=== PATIENT | female | born 1995 | race African-American/Black ===

== ENCOUNTER 2017-03-13 09:09 | Emergency (ER) | payer MEDICAID ==
[~2017-03-13] VITALS: Ht 157.5 cm; Wt 70.3 kg
[~2017-03-13 09:09] MED LIST: ACHD5005 PO; CEPH-507 PO; CLTR1PV45 VG; DCS100C PO; DOCU100C37 PO; HYDR-3812 PO; IBP600T1 PO; IBUP-1773 PO; METR500T PO; PREN1TAB71 PO; VALA500T17 PO
[2017-03-13] MEDS ORDERED: TETANUS,DIPTH,PERTUSS P/F (BOOSTRIX) 0.5 ML VIAL IM ONE (09:30)
[2017-03-13] MEDS ORDERED: IBUPROFEN 600 MG (MOTRIN) TAB PO ONE (09:30)
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
[2017-03-13 10:59] VITALS: BP 134/86
== END 2017-03-13 10:59 | disposition home or self-care (01) ==
LOC: EDUNIT# 09:09 → ER 09:13
DX: S01.01XA Laceration without foreign body of scalp, initial encounter (principal); Z23 Encounter for immunization; J45.909 Unspecified asthma, uncomplicated; X99.9XXA Assault by unspecified sharp object, initial encounter; Y92.009 Unspecified place in unspecified non-institutional (private) residence as the place of occurrence of the external cause; Y99.8 Other external cause status
CPT/HCPCS: 70450; 90715

== ENCOUNTER 2017-03-20 04:10 | Emergency (ER) | payer MEDICAID ==
[~2017-03-20] VITALS: Ht 157.5 cm; Wt 70.5 kg
--- OUTSIDE RECORDS SUMMARY | 2017-03-20 04:19 | XMS REPORT ---
Author Author BLESSING LMOELI Organization [facility] Address [address] [place] [address] Care Team Providers Care Presser And Blocker Knitted Goods Name Role Phone BLESSING LOMELI Unavailable PROBLEMS Type Condition ICD9-CM Code [id number] Code Onset Dates Condition Status SNOMED Code Problem Previous section Z98.89 Active 103815880 Problem Migraine with aura and without status migrainosus, not intractable G43.109 Active 0400753 ALLERGIES Substance Reaction Event Type Date Status Sulfamethoxazole-Trimethoprim Unknown Drug Allergy May, Active SOCIAL HISTORY No smoking Hx information available PLAN OF CARE Activity Details Follow Up After IUD available Reason: VITAL SIGNS Height 62 in 2016-05-23 Weight 162 lbs 2016-05-23 Temperature 98.1 degrees Fahrenheit 2016-05-23 Heart Rate 80 bpm 2016-05-23 Respiratory Rate 20 2016-05-23 BMI 29.63 kg/m2 2016-05-23 Blood pressure systolic 108 mmHg 2016-05-23 Blood pressure diastolic 72 mmHg 2016-05-23 MEDICATIONS Medication Instructions Dosage Frequency Start Date End Date Duration Status Ortho Micronor 0.35 MG Orally Once a day 1 tablet 24h May, 30 day(s) Active RESULTS Name Result Date Reference Range TEST, URINE (IN HOUSE) 2016-05-23 RESULTS negative Lot # [id number] Control + Exp date 09/03 PROCEDURES Procedure Date Ordered Related Diagnosis Body Site Office Visit, Est Pt., Level 3 May 23, 2016 URINE TEST May 23, 2016 IMMUNIZATIONS No Known Immunizations
--- OUTSIDE RECORDS SUMMARY | 2017-03-20 04:21 | XMS REPORT ---
Demographics Address [address] [place] [address] Preferred Language Botswanan Marital Status Never Sikh Affiliation Unknown Race Black or Ethnic Group Not or Author Author Dyan Goodman [facility] Address [address] [place], [place] [phone] Care Team Providers Care Athletic Equipment Manager Name Role Phone Dyan Goodman PCP Unavailable Allergies and Adverse Reactions Name Reaction Notes NO KNOWN DRUG ALLERGIES Plan of Treatment Planned Activity Comments Planned Date Planned Time Plan/Goal ALPHA-FETOPROTEIN SERUM 02/21/2015 12:00 AM CHORIONIC GONADOTROPIN TEST 02/21/2015 12:00 AM CHORIONIC GONADOTROPIN ASSAY 02/21/2015 12:00 AM OB US >/=14 WKS SNGL FETUS 03/14/2015 12:00 AM Medications Name Start Date Expiration Date SIG Comments Diflucan 150 mg oral tablet 01/12/2015 01/13/2015 take 1 tablet (150 mg) by oral route once for 1 day Problem List Not available. Vital Signs Date Time BP-Sys(mm[Hg] BP-Zahraa(mm[Hg]) HR(bpm) RR(rpm) Temp WT HT HC BMI BSA BMI Percentile O2 Sat(%) 01/09/2015 11:19:00 AM 135 mmHg 75 mmHg 112 bpm 20 rpm 99.5 F 153 lbs 63 in 27.10 kg/m2 1.76 m2 Social History Name Description Comments Tobacco Never smoker History of Procedures Date Ordered Description Order Status 01/09/2015 11:27 AM URINE TEST Reviewed 01/09/2015 12:00 AM CYTOPATH C/V THIN LAYER Returned 01/09/2015 12:00 AM SPECIMEN HANDLING OFFICE-LAB Reviewed 01/09/2015 12:00 AM N.GONORRHOEAE DNA AMP PROB Returned 01/09/2015 12:00 AM CHLAMYDIA CULTURE Returned 01/09/2015 12:00 AM HIV-1ANTIBODY Returned 01/09/2015 12:00 AM URINALYSIS AUTO W/SCOPE Returned 01/09/2015 12:00 AM OBSTETRIC PANEL Returned 01/09/2015 12:00 AM HEMOGLOBIN ELECTROPHORESIS Returned Results Summary Data and Description Results 01/09/2015 11:27 AM Test, Urine Positive 01/09/2015 12:18 PM RPR Non Reactive COLOR YELLOW APPEARANCE CLEAR SPEC GRAV 1.025 pH 6.0 PROTEIN NEGATIVE GLUCOSE NEGATIVE mg/dLKETONE NEGATIVE BILIRUBIN NEGATIVE BLOOD NEGATIVE NITRITE NEGATIVE LEUK SCREEN NEGATIVE CASTS/LPF NEGATIVE /LPFCRYSTALS NEGATIVE MUCOUS THRDS NEGATIVE BACTERIA FEW EPITH CELLS FEW SQUAMOUS /HPFTRICHOMONAS NEGATIVE YEAST NEGATIVE WBC 8.7 RBC 4.79 HGB 14.0 g /dLHCT 40.70 %MCV 85.0 fLMCH 29.20 pgMCHC 34.40 g/dLRDW CV 13.60 %MPV 10.0 fLPLT 285 %NEUT 47.20 %%LYMP 44.90 %%MONO 6.70 %%EOS 0.70 %%BASO 0.50 %#NEUT 4.10 #LYMP 3.89 #MONO 0.58 #EOS 0.06 #BASO 0.04 HBsAg Screen Negative HIV AG/AB COMBO 0.11 Rubella Antibodies, IgG 2.29 Index History Of Immunizations Not available. History of Past Illness Name Date of Onset Comments *No known medical problems test confirmed positive Jan 09 2015 11:27AM Encounter for supervision of normal in second trimester, unspecified Feb 21 2015 2:42PM Payers Insurance Name Company Name Plan Name Plan Number Policy Number Policy Group Number Start Date [facility] - [facility] Plan [facility] Comm [id number] N/A History of Encounters Visit Date Visit Type Provider 02/21/[address] Dyan Goodman MD 01/17/[address] TRINIDAD WOLF MD 01/09/2015 Office visit Donna Bacon APRN
--- OUTSIDE RECORDS SUMMARY | 2017-03-20 04:21 | XMS REPORT ---
Demographics Address [address] [place] [address] Preferred Language Sao Tomean Marital Status Never Taoism Affiliation Unknown Race Black or Ethnic Group Not or Author Author Dyan Goodman [facility] Address [address] [place], [place] [phone] Care Team Providers Care Buffer Nickel Name Role Phone Dyan Goodman PCP Unavailable Allergies and Adverse Reactions Name Reaction Notes NO KNOWN DRUG ALLERGIES Plan of Treatment Not available. Medications Name Start Date Expiration Date SIG [...] of Procedures Date Ordered Description Order Status 02/21/2015 12:00 AM ALPHA-FETOPROTEIN SERUM Returned 02/21/2015 12:00 AM CHORIONIC GONADOTROPIN TEST Returned 02/21/2015 12:00 AM CHORIONIC GONADOTROPIN ASSAY Returned 03/14/2015 12:00 AM OB US >/=14 WKS SNGL FETUS Returned 01/09/2015 11:27 AM URINE TEST Reviewed 01/09/2015 [...] COMBO 0.11 Rubella Antibodies, IgG 2.29 Index 02/21/2015 3:12 PM AFP Value 0.0552 ug/mLAFP MoM 1.26 hCG Value 55823.0 mIU/ mLhCG MoM 0.98 uE3 Value 1.020 ng/mLuE3 MoM 0.81 ZAHRAA Value 131.220 pg/mLDIA MoM 0.76 OSBR [place] 1 [place] [address] DSR (Second Trimester) 1IN 8668 DSR (By Age) 1 IN 1124 T18 Risk Not increased T18 (By Age) 1:4377 History Of Immunizations Not available. History of Past Illness Name Date of Onset Comments *No known medical problems test confirmed positive Jan 09 2015 11:27AM Encounter for supervision of normal in second trimester, unspecified Feb 21 2015 2:42PM Payers Insurance Name Company Name Plan Name Plan Number Policy Number Policy Group Number Start Date [facility] - [facility] - Community Plan [facility] Comm [id number] N/A History of Encounters Visit Date Visit Type Provider 05/03/[address] Dyan Goodman MD 04/24/[address] Dyan Goodman MD 03/27/[address] Dyan Goodman MD 02/21/[address] Dyan Goodman MD 01/17/[address] TRINIDAD WOLF MD 01/09/2015 Office visit Donna Bacon APRN
--- OUTSIDE RECORDS SUMMARY | 2017-03-20 04:21 | XMS REPORT ---
Author Author BLESSING LOMELI [facility] eClinicalWorks Address Unknown Phone Unavailable Care Team Providers Care Retinal Angiographer Name Role Phone BLESSING LOMELI Unavailable Allergies No Known Allergies Problems Problem Type Condition Code Onset Dates Condition Status Problem Late care, third trimester O09.33 Active Problem Supervision of normal , third trimester Z34.93 Active Problem Previous section Z98.89 Active Assessment Proteinuria affecting O12.10 Active Assessment 36 weeks gestation of Z3A.36 Active Assessment Supervision of normal , third trimester Z34.93 Active Assessment Encounter for immunization Z23 Active Medications No Known Medications Procedures Procedure Coding System Code Date DETECT AGNT MULT, DNA, AMPLI CPT-4 29848 Jun 29, 2015 Office Visit, Est Pt., Level 2 CPT-4 88298 Jun 29, 2015 URINE-NO MICRO CPT-4 83432 Jun 29, 2015 SINGLE IMMUNIZATION ADMIN CPT-4 95498 Jun 29, 2015 TDAP (BOOSTRIX) CPT-4 41620 Jun 29, 2015 Vital Signs Date/Time: Jun 29, 2015 Temperature 98.0 F Weight 179.9 lbs Height 62 in BMI 32.904 Index Blood Pressure Diastolic 88 mmHg Blood Pressure Systolic 130 mmHg Results Name Result Date Reference Range Unit Abnormality Flag UA OB DIP (IN HOUSE) ----Glucose neg [id number] ----Protein 1+ 20150629 Immunizations Vaccine Administration Date TDAP (BOOSTRIX) Jun 29, 2015 Summary Purpose eClinicalWorks Submission
--- OUTSIDE RECORDS SUMMARY | 2017-03-20 04:22 | XMS REPORT ---
Demographics Address [address] [place] [address] Preferred Language Russian Marital Status Never Amish Affiliation Unknown Race Black or Ethnic Group Not or Author Author Dyan Goodman [facility] Address [address] [place], [place] [phone] Care Team Providers Care Online Advertising Manager Name Role Phone Dyan Goodman PCP [...] Policy Number Policy Group Number Start Date [facility] - [facility] - [facility] Plan [facility] Comm [id number] N/A History of Encounters Visit Date Visit Type Provider 02/21/[address] Dyan Goodman MD 01/17/[address] TRINIDAD WOLF MD 01/09/2015 Office visit Donna Bacon APRN
--- OUTSIDE RECORDS SUMMARY | 2017-03-20 04:23 | XMS REPORT ---
Author Author BLESSING LOMELI [facility] eClinicalWorks Address Unknown Phone Unavailable Care Team Providers Care Dining Car Conductor Name Role Phone BLESSING LOMELI Unavailable Allergies No Known Allergies Problems Problem Type Condition Code Onset Dates Condition Status Problem Late care, third trimester O09.33 Active Problem Supervision of normal , third trimester Z34.93 Active Problem Previous section Z98.89 Active Assessment Proteinuria affecting O12.10 Active Medications No Known Medications Procedures Procedure Coding System Code Date ASSAY OF PROTEIN, URINE CPT-4 88503 Jun 30, 2015 Results No Known Results Summary Purpose eClinicalWorks Submission
--- OUTSIDE RECORDS SUMMARY | 2017-03-20 04:26 | XMS REPORT ---
Author Author BLESSING LOMELI [facility] Address [address] [place] [address] Care Team Providers Care College Football Coach Name Role Phone BLESSING LOMELI Unavailable PROBLEMS Type Condition ICD9-CM Code [id number] Code Onset Dates Condition Status SNOMED Code Problem Previous section Z98.89 Active 623884132 Problem Migraine with aura and without status migrainosus, not intractable G43.109 Active 5934679 ALLERGIES No Known Allergies SOCIAL HISTORY No smoking Hx information available PLAN OF CARE VITAL SIGNS MEDICATIONS No Known Medications RESULTS No Results PROCEDURES No Known procedures IMMUNIZATIONS No Known Immunizations
--- OUTSIDE RECORDS SUMMARY | 2017-03-20 04:26 | XMS REPORT ---
Demographics Address [address] [place] [address] Preferred Language Iranian Marital Status Never Jehovah'S Witness Affiliation Unknown Race Black or Ethnic Group Not or Author Author Dyan Goodman [facility] Address [address] [place], [place] [phone] Care Team Providers Care Screen Cutter And Trimmer Name Role Phone Dyan Goodman PCP Unavailable Allergies and Adverse Reactions Name Reaction Notes NO KNOWN DRUG ALLERGIES Plan of Treatment Not available. Medications Active Name Start Date Estimated Completion Date SIG Comments promethazine 25 mg oral tablet 05/03/2015 take 1 tablet by oral route qhs for nausea and sleep Name Start Date Expiration Date SIG Comments [...] Value 0.0552 ug/mLAFP MoM 1.26 hCG Value 08552.0 mIU/ mLhCG MoM 0.98 uE3 Value 1.020 ng/mLuE3 MoM 0.81 ZAHRAA Value 131.220 pg/mLDIA MoM 0.76 OSBR [place] 1 [place] [address] DSR (Second Trimester) 1IN 8668 DSR (By [...] Policy Number Policy Group Number Start Date [facility] - [facility] - [facility] Comm [id number] N/A History of Encounters Visit Date Visit Type Provider 05/15/[address] Dyan Goodman MD 05/03/[address] Dyan Goodman MD 04/24/[address] Dyan Goodman MD 03/27/[address] Dyan Goodman MD 02/21/[address] Dyan Goodman MD 01/17/[address] TRINIDAD WOLF MD 01/09/2015 Office visit Donna Bacon APRN
--- OUTSIDE RECORDS SUMMARY | 2017-03-20 04:29 | XMS REPORT ---
Author Author BLESSING LOMELI Organization [facility] Address [address] [place] [address] Care Team Providers Care Whizzer Hand Name Role Phone ARMANI BLESSING Unavailable PROBLEMS Type Condition ICD9-CM Code [id number] Code Onset Dates Condition Status SNOMED Code Problem Previous section Z98.89 Active 472338291 Problem Migraine with aura and without status migrainosus, not intractable G43.109 Active 0606960 ALLERGIES Substance Reaction Event Type Date Status Sulfamethoxazole-Trimethoprim Unknown Drug Allergy Jul, Active SOCIAL HISTORY Never Assessed PLAN OF CARE Activity Details Follow Up 4 Weeks, 4W Reason: VITAL SIGNS Height 62 in 2016-07-23 Weight 162.8 lbs 2016-07-23 Temperature 97.0 degrees Fahrenheit 2016-07-23 Heart Rate 78 bpm 2016-07-23 Respiratory Rate 18 2016-07-23 BMI 29.77 kg/m2 2016-07-23 Blood pressure systolic 110 mmHg 2016-07-23 Blood pressure diastolic 68 mmHg 2016-07-23 MEDICATIONS Medication Instructions Dosage Frequency Start Date End Date Duration Status Ortho Micronor 0.35 MG Orally Once a day 1 tablet 24h May, 30 day(s) Active Mirena 20 MCG/24HR Intrauterine placed 07/23/16 as directed Jul, Active RESULTS Name Result Date Reference Range TEST, URINE (IN HOUSE) 2016-07-23 RESULTS Negative Lot # [id number] Control + Exp date 08/2017 PROCEDURES Procedure Date Ordered Result Body Site URINE TEST July 23, 2016 INSERT INTRAUTERINE DEVICE July 23, 2016 IMMUNIZATIONS No Known Immunizations MEDICAL (GENERAL) HISTORY Type Description Date Medical History Asthma Surgical History Surgical History ganglion cyst Surgical History hernia repair Surgical History cholecystectomy Hospitalization History Childbirth only
--- OUTSIDE RECORDS SUMMARY | 2017-03-20 04:29 | XMS REPORT ---
Author ANDREA Gomes [facility] eClinicalWorks Address Unknown Phone Unavailable Care Team Providers Care Deputy Sheriff Court Services Name Role Phone ANDREA POLLOCK CP Unavailable Allergies, Adverse Reactions, Alerts Substance Reaction Event Type Sulfamethoxazole-Trimethoprim Info Not Available Drug Allergy Problems Problem Type Condition Code Onset Dates Condition Status Assessment Encounter for contraceptive management, unspecified Z30.9 Active Problem Previous section Z98.89 Active Medications Medication Code System Code Instructions Start Date End Date Status Dosage Depo-Provera [facility] [address]-29 150 MG/ML Intramuscular every 3 months September 06, 2015 1 ml Procedures Procedure Coding System Code Date URINE TEST CPT-4 04005 September 06, 2015 DEPO PROVERA (150 MG/ML) CPT-4 J1050 September 06, 2015 Office Visit, Est Pt., Level 3 CPT-4 19433 September 06, 2015 THER/PROPH/DIAG INJ, SC/IM CPT-4 74546 September 06, 2015 Vital Signs Date/Time: September 06, 2015 Temperature 98.3 F Weight 164.0 lbs Height 62 in BMI 29.99 Index Blood Pressure Diastolic 76 mmHg Blood Pressure Systolic 112 mmHg Cardiac Monitoring Heart Rate 78 bpm Results Name Result Date Reference Range Unit Abnormality Flag TEST, URINE (IN HOUSE) ----RESULTS negative [id number] ----Lot # [id number] ----Control + [id number] ----Exp date 20150906 Summary Purpose eClinicalWorks Submission
--- OUTSIDE RECORDS SUMMARY | 2017-03-20 04:33 | XMS REPORT ---
Author Author BLESSING LOMELI [facility] eClinicalWorks Address Unknown Phone Unavailable Care Team Providers Care Sonography Technologist Name Role Phone BLESSING LOMELI Unavailable Allergies, Adverse Reactions, Alerts Substance Reaction Event Type Sulfa (sulfonamide Antibiotics) Info Not Available Non Drug Allergy Problems Problem Type Condition Code Onset Dates Condition Status Problem Late care, third trimester O09.33 Active Problem Supervision of normal , third trimester Z34.93 Active Problem Previous section Z98.89 Active Assessment 35 weeks gestation of Z3A.35 Active Assessment Previous section Z98.89 Active Assessment Supervision of normal , third trimester Z34.93 Active Assessment Right upper quadrant pain R10.11 Active Medications Medication Code System Code Instructions Start Date End Date Status Dosage [facility] [id number] Orally Once a day 1 tablet Procedures Procedure Coding System Code Date VENIPUNCT, ROUTINE* CPT-4 14936 Jun 22, 2015 URINE CULTURE/COLONY COUNT CPT-4 97091 Jun 22, 2015 URINE TEST CPT-4 88957 Jun 22, 2015 URINALYSIS, AUTO, W/O SCOPE CPT-4 83315 Jun 22, 2015 COMPLETE CBC W/AUTO DIFF WBC CPT-4 52628 Jun 22, 2015 ASSAY OF URINE CREATININE CPT-4 06651 Jun 22, 2015 Office Visit, Est Pt., Level 3 CPT-4 15899 Jun 22, 2015 ASSAY OF BLOOD/URIC ACID CPT-4 49454 Jun 22, 2015 LACTATE (LD) (LDH) ENZYME CPT-4 76653 Jun 22, 2015 ASSAY OF PROTEIN, URINE CPT-4 02125 Jun 22, 2015 COMPREHEN METABOLIC PANEL CPT-4 85049 Jun 22, 2015 Vital Signs Date/Time: Jun 22, 2015 Temperature 98.3 F Weight 178.5 lbs Height 62 in BMI 32.648 Index Blood Pressure Diastolic 84 mmHg Blood Pressure Systolic 132 mmHg Cardiac Monitoring Heart Rate 80 bpm Results Name Result Date Reference Range Unit Abnormality Flag ROUTINE VENIPUNCTURE LDH ----LDH 216 20150622 119-226 IU/L TEST, URINE (IN HOUSE) ----RESULTS positive 20150622 ----Lot # [id number] ----Control + [id number] ----Exp date 20150622 UA LONG DIP (IN HOUSE) ----ANAHI negative 20150622 ----GLU negative 20150622 ----SG 1.025 20150622 ----KET negative 20150622 ----pH 6.5 20150622 ----Protein negative 20150622 ----BLO trace-intact 20150622 ----DON 3+ 20150622 ----Color yellow 20150622 ----Odor none 20150622 ----Exp date 20150622 ----URO 0.2 E.U. /dL 20150622 ----NIT negative 20150622 ----Clarity clear 20150622 ----Lot # [id number] CMP ----BUN/Creatinine Ratio 10 20150622 8-20 ----eGFR If Africn Am 123 28168223 >59 mL/min/1.73 ----eGFR If NonAfricn Am 107 26939016 >59 mL/min/1.73 ----Creatinine, Serum 0.79 20150622 0.57-1.00 mg/dL ----Chloride, Serum 104 20150622 97-108 mmol/L ----Potassium, Serum 4.0 30780187 3.5-5.2 mmol/L ----Sodium, Serum 140 01692943 134-144 mmol/L ----Protein, Total, Serum 6.4 40963014 6.0-8.5 g/dL ----Albumin, Serum 3.7 55772322 3.5-5.5 g/dL ----Globulin, Total 2.7 26087251 1.5-4.5 g/dL ----A/G Ratio 1.4 20150622 1.1-2.5 ----BUN 8 20150622 6-20 mg/dL ----Glucose, Serum 94 20150622 65-99 mg/dL ----Carbon Dioxide, Total 22 20150622 18-29 mmol/L ----Calcium, Serum 8.9 04509952 8.7-10.2 mg/dL ----AST (SGOT) 21 20150622 0-40 IU/L ----ALT (SGPT) 12 20150622 0-32 IU/L ----Bilirubin, Total <0.2 20150622 0.0-1.2 mg/dL ----Alkaline Phosphatase, S 112 20150622 39-117 IU/L URIC ACID, SERUM ----Uric Acid, Serum 4.5 96046101 2.5-7.1 mg/dL CBC ----Hemoglobin 12.2 50799952 11.1-15.9 g/dL ----RBC 4.19 44308051 3.77-5.28 x10E6/uL ----MCV 85 87478722 79-97 fL ----Hematocrit 35.6 36841033 34.0-46.6 % ----MCHC 34.3 50819688 31.5-35.7 g/dL ----MCH 29.1 74342966 26.6-33.0 pg ----Platelets 283 59183601 150-379 x10E3/uL ----RDW 13.6 15038145 12.3-15.4 % ----Neutrophils 62 29883275 % ----Monocytes 7 15433150 % ----Lymphs 30 33181314 % ----Basos 0 80135409 % ----Eos 1 51773906 % ----Immature Grans (Abs) 0.0 54366683 0.0-0.1 x10E3/uL ----Lymphs (Absolute) 2.8 66576645 0.7-3.1 x10E3/uL ----WBC 9.2 39191331 3.4-10.8 x10E3/uL ----Immature Granulocytes 0 07655758 % ----Neutrophils (Absolute) 5.7 06577892 1.4-7.0 x10E3/uL ----Baso (Absolute) 0.0 21712535 0.0-0.2 x10E3/uL ----Monocytes(Absolute) 0.7 20150622 0.1-0.9 x10E3/uL ----Eos (Absolute) 0.1 20150622 0.0-0.4 x10E3/uL Summary Purpose eClinicalWorks Submission
--- OUTSIDE RECORDS SUMMARY | 2017-03-20 04:33 | XMS REPORT ---
Demographics Address [address] [place] [address] Preferred Language Greenlandic Marital Status Never Yarsani Affiliation Unknown Race Black or Ethnic Group Not or Author Author Dyan Goodman [facility] Address [address] [place], [place] [phone] Care Team Providers Care Panel Fitter Name Role Phone Dyan Goodman PCP Unavailable [...] Value 0.0552 ug/mLAFP MoM 1.26 hCG Value 24770.0 mIU/ mLhCG MoM 0.98 uE3 Value 1.020 ng/mLuE3 MoM 0.81 ZAHRAA Value 131.220 pg/mLDIA MoM 0.76 OSBR Risk 1 IN [address] DSR (Second Trimester) 1IN 8668 DSR (By [...] Number Policy Group Number Start Date [facility] - [facility] - [facility] Plan [facility] Comm [id number] N/A History of Encounters Visit Date Visit Type Provider 03/27/[address] Dyan Goodman MD 02/21/[address] Dyan Goodman MD 01/17/[address] TRINIDAD WOLF MD 01/09/2015 Office visit Donna Bacon SUBSTATION MECHANIC
--- OUTSIDE RECORDS SUMMARY | 2017-03-20 04:33 | XMS REPORT | CCD ---
Author Author RAINA SUMMERS Unknown Address [address] [place], [place] [id number] Care Team Providers Care Direct Marketing Coordinator Name Role Phone JUNI ROCK, EDILSON Schaeffer Attphydmitry EDILSON ALFREDO MD Vital Signs Unknown or Not Available. Allergies Unknown or Not Available. Procedures Procedure Code Procedure Type Date US OB COMP<14 WK SINGLE OR FIRST 133496874 SNOMED CT 12/22 ^UA AUTO DIPSTICK ONLY 040734345 SNOMED CT 12/22/2014 TEST URINE 710217738 SNOMED CT 12/22/2014 UA ROUTINE C&S IF IND 048156364 SNOMED CT 12/22/2014 History of Immunizations Immunization Code Date HPV, quadrivalent 62 09/07/2008 HPV, quadrivalent 62 11/11/2008 Tdap 115 01/11/2006 Tdap 115 09/07/2008 Problems Unknown or Not Available. Results UA ROUTINE C&S IF IND - Collect Date/Time: 12/22/2014 14:38 Test Name Code Test Result Test Units Test Ref Range COLOR YELLOW N/A NL: YELLOW APPEARANCE CLEAR N/A NL: CLEAR SPEC GRAV 1.020 N/A NL: 1.002 - 1.022 pH 6.5 N/A NL: 5 - 9 PROTEIN NEGATIVE N/A NL: NEGATIVE mg/dl GLUCOSE NEGATIVE N/A NL: NEGATIVE mg/dl KETONE NEGATIVE N/A NL: NEGATIVE mg/dl BILIRUBIN NEGATIVE N/A NL: NEGATIVE BLOOD NEGATIVE N/A NL: NEGATIVE NITRITE NEGATIVE N/A NL: NEGATIVE LEUK SCREEN NEGATIVE N/A NL: NEGATIVE MICRO INDICATED? NOT INDICATED N/A TEST URINE - Collect Date/Time: 12/22/2014 14:38 Test Name Code Test Result Test Units Test Ref Range TEST UR 2106-3 POSITIVE N/A Active Medications Unknown or Not Available. Medications Administered During Visit Unknown or Not Available. Encounters Encounter Diagnosis Diagnosis Code Start Date ABDOMINAL PAIN, UNSPECIFIED SITE 73323 12/22/2014 Social History Smoking Status Code Start Date End Date Never smoker [id number] Patient Decision Aids Unknown or Not Available. Discharge Instructions You were admitted to [facility] on 12/22/2014 with a principal diagnosis of ABDOMINAL PAIN, UNSPECIFIED SITE. You were discharged from [facility] on 12/22/2014. Should you have any questions prior to discharge, please contact a member of your healthcare team. If you have left the hospital and have any questions, please contact your primary care physician. Chief Complaint and Reason For Visit Chief Complaint Date of Onset ABDOMINAL CRAMPING Function Status Unknown or Not Available. Plan of Care Unknown or Not Available. Referral/Transition of Care Unknown or Not Available.
--- OUTSIDE RECORDS SUMMARY | 2017-03-20 04:34 | XMS REPORT ---
Demographics Address [address] [place] [address] Preferred Language Slovenian Marital Status Never Anglican Affiliation Unknown Race Black or Ethnic Group Not or Author Author Dyan Goodman [facility] Address [address] [place], [place] [phone] Care Team Providers Care Family Preservation Worker Name Role Phone Dyan Goodman PCP Unavailable [...] Value 0.0552 ug/mLAFP MoM 1.26 hCG Value 20773.0 mIU/ mLhCG MoM 0.98 uE3 Value 1.020 ng/mLuE3 MoM 0.81 ZAHRAA Value 131.220 pg/mLDIA MoM 0.76 OSBR [place] 1 [place] [address] DSR (Second Trimester) 1IN 8668 DSR (By [...] Policy Number Policy Group Number Start Date [facility] - [facility] - Community Plan [facility] Comm [id number] N/A History of Encounters Visit Date Visit Type Provider 04/24/[address] Dyan Goodman MD 03/27/[address] Dyan Goodman MD 02/21/[address] Dyan Goodman MD 01/17/[address] TRINIDAD WOLF MD 01/09/2015 Office visit Donna Bacon APRN
--- OUTSIDE RECORDS SUMMARY | 2017-03-20 04:34 | XMS REPORT ---
Demographics Address [address] [place] [address] Preferred Language Armenian Marital Status Never Adventism Affiliation Unknown Race Black or Ethnic Group Not or Author Author Dyan Goodman [facility] Address [address] [place], [place] [phone] Care Team Providers Care Supervisor [employer] Name Role Phone Dyan Goodman PCP Unavailable Allergies and Adverse Reactions Name Reaction Notes NO KNOWN DRUG ALLERGIES Plan of Treatment Planned Activity Comments Planned Date Planned Time Plan/Goal GLUCOSE TOLERANCE TEST (GTT) 05/15/2015 12:00 AM COMPLETE CBC W/AUTO DIFF WBC 05/15/2015 12:00 AM Medications Active Name Start Date Estimated Completion [...] Value 0.0552 ug/mLAFP MoM 1.26 hCG Value 32348.0 mIU/ mLhCG MoM 0.98 uE3 Value 1.020 ng/mLuE3 MoM 0.81 ZAHRAA Value 131.220 pg/mLDIA MoM 0.76 [place] 1 [place] [address] DSR (Second Trimester) 1IN 8668 DSR (By Age) 1 IN 1124 T18 Risk Not increased T18 (By Age) 1:4377 History Of Immunizations Not available. History of Past Illness Name Date of Onset Comments *No known medical problems test confirmed positive Jan 09 2015 11:27AM Encounter for supervision of normal in second trimester, unspecified Feb 21 2015 2:42PM , Other Normal May 15 2015 2:08PM Payers Insurance Name Company Name Plan Name Plan Number Policy Number Policy Group Number Start Date [facility] - [facility] - [facility] Comm [id number] N/A History of Encounters Visit Date Visit [...]
--- OUTSIDE RECORDS SUMMARY | 2017-03-20 04:35 | XMS REPORT ---
Demographics Address [address] [place] [address] Preferred Language Latvian Marital Status Never Muslim Affiliation Unknown Race Black or Ethnic Group Not or Author Author Palmira Darnell [facility] Address [address] [place], [place] [phone] Care Team Providers Care Pulverizer Operator Name Role Phone Palmira Darnell PCP Unavailable Allergies and Adverse Reactions Name [...] test confirmed positive Jan 09 2015 11:27AM Payers Insurance Name Company Name Plan Name Plan Number Policy Number Policy Group Number Start Date [facility] - [facility] - [facility] Comm [id number] N/A History of Encounters Visit Date Visit Type Provider 01/17/[address] Palmira Darnell MD 01/09/2015 Office visit Donna Bacon WORKPLACE TRAINER AND ASSESSOR
--- OUTSIDE RECORDS SUMMARY | 2017-03-20 04:35 | XMS REPORT ---
Demographics Address [address] [place] [address] Preferred Language Estonian Marital Status Never Quaker Affiliation Unknown Race Black or Ethnic Group Not or Author Author Dyan Goodman [facility] Address [address] [place], [place] [phone] Care Team Providers Care Malware Analyst Name Role Phone Dyan Goodman PCP Unavailable [...] Value 0.0552 ug/mLAFP MoM 1.26 hCG Value 22538.0 mIU/ mLhCG MoM 0.98 uE3 Value 1.020 ng/mLuE3 MoM 0.81 ZAHRAA Value 131.220 pg/mLDIA MoM 0.76 OSBR [place] 1 [place] [address] DSR (Second Trimester) 1IN 8668 DSR (By [...] Policy Group Number Start Date [facility] - [facility] - [facility] Comm [id number] N/A History of Encounters Visit Date Visit Type Provider 05/03/[address] Dyan Goodman MD 04/24/[address] Dyan Goodman MD 03/27/[address] Dyan Goodman MD 02/21/[address] Dyan Goodman MD 01/17/[address] TRINIDAD WOLF MD 01/09/2015 Office visit Donna Bacon APRN
--- OUTSIDE RECORDS SUMMARY | 2017-03-20 04:35 | XMS REPORT ---
Demographics Address [address] [place] [address] Preferred Language Brazilian Marital Status Never Restorationist Affiliation Unknown Race Black or Ethnic Group Not or Author Donna Contreras [facility] Address [address] [place], [place] [phone] Care Team Providers Care Promotional Marketing Analyst Name Role Phone Donna Bacon PCP Unavailable Allergies and Adverse Reactions Name Reaction Notes NO KNOWN DRUG ALLERGIES Plan of Treatment Not available. Medications Active Name Start Date Estimated Completion Date SIG Comments Diflucan 150 mg oral [...] Group Number Start Date [facility] - [facility] - [facility] Comm [id number] N/A History of Encounters Visit Date Visit Type Provider 01/09/2015 Office visit Donna Bacon SIPHON OPERATOR
--- OUTSIDE RECORDS SUMMARY | 2017-03-20 04:35 | XMS REPORT ---
Demographics Address [address] [place] [address] Preferred Language Jordanian Marital Status Never Restorationism Affiliation Unknown Race Black or Ethnic Group Not or Author Author Dyan Goodman [facility] Address [address] [place], [place] [phone] Care Team Providers Care Metal Or Wood Blocker Name Role Phone Dyan Goodman PCP Unavailable [...] Policy Number Policy Group Number Start Date [facility] - [facility] - [facility] Comm [id number] N/A History of Encounters Visit Date Visit Type Provider 02/21/[address] Dyan Goodman MD 01/17/[address] TRINIDAD WOLF MD 01/09/2015 Office visit Donna Bacon APRN
--- OUTSIDE RECORDS SUMMARY | 2017-03-20 04:35 | XMS REPORT ---
Demographics Address [address] [place] [address] Preferred Language Swiss Marital Status Never Amish Affiliation Unknown Race Black or Ethnic Group Not or Author Author Dyan Goodman [facility] Address [address] [place], [place] [phone] Care Team Providers Care Hospital Social Worker Name Role Phone Dyan Goodman PCP [...] Value 0.0552 ug/mLAFP MoM 1.26 hCG Value 69863.0 mIU/ mLhCG MoM 0.98 uE3 Value 1.020 ng/mLuE3 MoM 0.81 ZAHRAA Value 131.220 pg/mLDIA MoM 0.76 OSBR [place] 1 [place] [address] DSR (Second Trimester) 1IN 8668 DSR (By [...] Policy Number Policy Group Number Start Date [facility] - [facility] - [facility] Comm [id number] N/A History of Encounters Visit Date Visit [...]
--- OUTSIDE RECORDS SUMMARY | 2017-03-20 04:35 | XMS REPORT ---
Demographics Address [address] [place] [address] Preferred Language Armenian Marital Status Never Christianity Affiliation Unknown Race Black or Ethnic Group Not or Author Author Dyan Goodman [facility] Address [address] [place], [place] [phone] Care Team Providers Care Track Mechanic Name Role Phone Dyan Goodman PCP Unavailable [...] Value 0.0552 ug/mLAFP MoM 1.26 hCG Value 57115.0 mIU/ mLhCG MoM 0.98 uE3 Value 1.020 ng/mLuE3 MoM 0.81 ZAHRAA Value 131.220 pg/mLDIA MoM 0.76 OSBR [place] 1 [place] [address] DSR (Second Trimester) 1IN 8668 DSR (By [...] Policy Number Policy Group Number Start Date [facility] - [facility] - Community Plan [facility] Comm [id number] N/A History of Encounters Visit Date Visit Type Provider 04/24/[address] Dyan Goodman MD 03/27/[address] Dyan Goodman MD 02/21/[address] Dyan Goodman MD 01/17/[address] TRINIDAD WOLF MD 01/09/2015 Office visit Donna Bacon APRN
--- OUTSIDE RECORDS SUMMARY | 2017-03-20 04:36 | XMS REPORT ---
Demographics Address [address] [place] [address] Preferred Language Brazilian Marital Status Never Voodoo Affiliation Unknown Race Black or Ethnic Group Not or Author Author [facility] Organization [facility] Address [address] [place], [place] [phone] Care Team Providers Care Asphalt Dauber Name Role Phone PCP Unavailable Allergies and Adverse Reactions Name Reaction Notes NO KNOWN DRUG ALLERGIES Plan of Treatment Planned Activity Comments Planned Date Planned Time Plan/Goal N.GONORRHOEAE DNA AMP PROB 01/09/2015 12:00 AM CHLAMYDIA CULTURE 01/09/2015 12:00 AM HIV-1ANTIBODY 01/09/2015 12:00 AM URINALYSIS AUTO W/SCOPE 01/09/2015 12:00 AM OBSTETRIC PANEL 01/09/2015 12:00 AM HEMOGLOBIN ELECTROPHORESIS 01/09/2015 12:00 AM Medications Not available. Problem List Not available. Vital Signs Date [...] 01/09/2015 12:00 AM CYTOPATH C/V THIN LAYER Reviewed 01/09/2015 12:00 AM SPECIMEN HANDLING OFFICE-LAB Reviewed 01/09/2015 12:00 AM N.GONORRHOEAE DNA AMP PROB Ordered 01/09/2015 12:00 AM CHLAMYDIA CULTURE Ordered 01/09/2015 12:00 AM HIV-1ANTIBODY Ordered 01/09/2015 12:00 AM URINALYSIS AUTO W/SCOPE Ordered 01/09/2015 12:00 AM OBSTETRIC PANEL Ordered 01/09/2015 12:00 AM HEMOGLOBIN ELECTROPHORESIS Ordered Results Summary Data and Description Results 01/09/2015 11:27 AM Test, Urine Positive History Of Immunizations Not available. History of Past Illness Name Date of Onset Comments *No known medical problems test confirmed positive Jan 09 2015 11:27AM Payers Insurance Name Company Name Plan Name Plan Number Policy Number Policy Group Number Start Date [facility] - [facility] Comm [id number] N/A History of Encounters Visit Date Visit Type Provider 01/09/2015 Office visit Donna Bacon ELECTRONIC ASSEMBLER
--- OUTSIDE RECORDS SUMMARY | 2017-03-20 04:36 | XMS REPORT ---
Demographics Address [address] [place] [address] Preferred Language Algerian Marital Status Never Druze Affiliation Unknown Race Black or Ethnic Group Not or Author Author Palmira Darnell [facility] Address [address] [place], [place] [phone] Care Team Providers Care Lion Hunter Name Role Phone Palmira Darnell PCP Unavailable [...] Policy Number Policy Group Number Start Date [facility] - [facility] - [facility] Comm [id number] N/A History of Encounters Visit Date Visit Type Provider 01/17/[address] Palmira Darnell MD 01/09/2015 Office visit Donna Bacon BUFFING WHEEL FORMER AUTOMATIC
--- OUTSIDE RECORDS SUMMARY | 2017-03-20 04:36 | XMS REPORT ---
Demographics Address [address] [place] [address] Preferred Language Citizen [place] Marital Status Never Rastafari Affiliation Unknown Race Black or Ethnic Group Not or Author Author Dyan Goodman [facility] Address [address] [place], [place] [phone] Care Team Providers Care Exercise Instructor Name Role Phone Dyan Goodman PCP Unavailable [...] Value 0.0552 ug/mLAFP MoM 1.26 hCG Value 72513.0 mIU/ mLhCG MoM 0.98 uE3 Value 1.020 ng/mLuE3 MoM 0.81 ZAHRAA Value 131.220 pg/mLDIA MoM 0.76 OSBR [place] 1 [place] [address] DSR (Second Trimester) 1IN 8668 DSR (By [...] Number Policy Group Number Start Date [facility] - [facility] - Counts Include [facility] Plan [facility] Comm [id number] N/A History of Encounters Visit Date Visit Type Provider 03/27/[address] Dyan Goodman MD 02/21/[address] Dyan Goodman MD 01/17/[address] TRINIDAD WOLF MD 01/09/2015 Office visit Donna Bacon FIRE WATCHER
--- OUTSIDE RECORDS SUMMARY | 2017-03-20 04:37 | XMS REPORT | Continuity of Care Document ---
Author Author [facility] Address Unknown Phone Unavailable Allergies Active Description Code Type Severity Reaction Onset Reported/Identified Relationship to Patient Clinical Status Yes Bactrim Drug Allergy N/A N/A 02/07/2011 Yes Sulfa (Sulfonamide Antibiotics) Drug Allergy N/A N/A 10/18/2013 Yes No Known Drug Allergies [id number] Drug Allergy Unknown N/ A 01/30/2014 Yes Sulfa (Sulfonamide Antibiotics) [id number] Drug Allergy Unknown rash 2014 Yes sulfamethoxazole [id number] Drug Allergy Unknown rash 2014 Yes trimethoprim [id number] Drug Allergy Unknown rash 2014 Medications Problems Date Dx Coded Attending Type Code Diagnosis Diagnosed By 08/17/2008 JUAN R PEARSON MD 729.5 pain in the hands 08/17/2008 ANDREA POLLOCK DO 729.5 pain in the hands 08/17/2008 MARIANELA DOWNEY APRN 729.5 pain in the hands 08/17/2008 MARIANELA DOWNEY APRN A 729.5 pain in the hands 08/17/2008 MARIANELA DOWNEY APRN A 729.5 pain in the hands 08/17/2008 BLESSING LOMELI MD 729.5 pain in the hands 08/17/2008 BLESSING LOMELI MD 729.5 pain in the hands 08/17/2008 BLESSING LOMELI MD 729.5 pain in the hands 08/17/2008 BLESSING LOMELI MD 729.5 pain in the hands 08/17/2008 BLESSING LOMELI MD 729.5 pain in the hands 08/17/2008 BLESSING LOMELI MD N 729.5 pain in the hands 08/17/2008 BLESSING LOMELI MD 729.5 pain in the hands 08/17/2008 ARMANI MD, BLESSING N 729.5 pain in the hands 08/17/2008 BLESSING LOMELI MD N 729.5 pain in the hands 08/17/2008 ARMANI ROCK, BLESSING N 729.5 pain in the hands 08/17/2008 BLESSING LOMELI MD N 729.5 pain in the hands 11/11/2008 JUAN R PEARSON MD V25.49 Gynecologic Service Prescrip Of Contracept Agent - Repeat Rx 11/11/2008 JUAN R PEARSON MD V69.2 Sexually Active, Frequently With [employer] 11/11/2008 JUAN R PEARSON MD V72.31 Pelvic Exam (Internal) 11/11/2008 JUAN R PEARSON MD 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 11/11/2008 ANDREA POLLOCK DO V25.49 Gynecologic Service Prescrip Of Contracept Agent - Repeat Rx 11/11/2008 ANDREA POLLOCK DO V69.2 Sexually Active, Frequently With [employer] 11/11/2008 ANDREA POLLOCK DO V72.31 Pelvic Exam (Internal) 11/11/2008 ANDREA POLLOCK DO 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 11/11/2008 MARIANELA DOWNEY APRN V25.49 Gynecologic Service Prescrip Of Contracept Agent - Repeat Rx 11/11/2008 MILAGROS DOWNEY APRNIDI A V69.2 Sexually Active, Frequently With [employer] 11/11/2008 MARIANELA DOWNEY APRN A V72.31 Pelvic Exam (Internal) 11/11/2008 MARIANELA DOWNEY APRN A V74.5 visit for: screening exam bact/ spirochetal venereal disease 11/11/2008 MARIANELA DOWNEY APRN A V25.49 Gynecologic Service Prescrip Of Contracept Agent - Repeat Rx 11/11/2008 SHAYAN VAZQUEZ MARIANELA A V69.2 Sexually Active, Frequently With [employer] 11/11/2008 MILAGROS DOWNEY APRNIDI A V72.31 Pelvic Exam (Internal) 11/11/2008 MILAGROS DOWNEY APRNIDI A V74.5 visit for: screening exam bact/ spirochetal venereal disease 11/11/2008 MARIANELA DOWNEY APRN A V25.49 Gynecologic Service Prescrip Of Contracept Agent - Repeat Rx 11/11/2008 MARIANELA DOWNEY APRN A V69.2 Sexually Active, Frequently With [employer] 11/11/2008 MARIANELA DOWNEY APRN A V72.31 Pelvic Exam (Internal) 11/11/2008 MARIANELA DOWNEY APRN A V74.5 visit for: screening exam bact/ spirochetal venereal disease 11/11/2008 BLESSING LOMELI MD V25.49 Gynecologic Service Prescrip Of Contracept Agent - Repeat Rx 11/11/2008 BLESSING LOMELI MD V69.2 Sexually Active, Frequently With [employer] 11/11/2008 BLESSING LOMELI MD V72.31 Pelvic Exam (Internal) 11/11/2008 BLESSING LOMELI MD 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 11/11/2008 BLESSING LOMELI MD V25.49 Gynecologic Service Prescrip Of Contracept Agent - Repeat Rx 11/11/2008 BLESSING LOMELI MD V69.2 Sexually Active, Frequently With [employer] 11/11/2008 BLESSING LOMELI MD V72.31 Pelvic Exam (Internal) 11/11/2008 BLESSING LOMELI MD 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 11/11/2008 BLESSING LOMELI MD V25.49 Gynecologic Service Prescrip Of Contracept Agent - Repeat Rx 11/11/2008 BLESSING LOMELI MD V69.2 Sexually Active, Frequently With [employer] 11/11/2008 BLESSING LOMELI MD V72.31 Pelvic Exam (Internal) 11/11/2008 BLESSING LOMELI MD 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 11/11/2008 BLESSING LOMELI MD V25.49 Gynecologic Service Prescrip Of Contracept Agent - Repeat Rx 11/11/2008 BLESSING LOMELI MD V69.2 Sexually Active, Frequently With [employer] 11/11/2008 BLESSING LOMELI MD V72.31 Pelvic Exam (Internal) 11/11/2008 BLESSING LOMELI MD 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 11/11/2008 BLESSING LOMELI MD V25.49 Gynecologic Service Prescrip Of Contracept Agent - Repeat Rx 11/11/2008 BLESSING LOMELI MD V69.2 Sexually Active, Frequently With [employer] 11/11/2008 BLESSING LOMELI MD V72.31 Pelvic Exam (Internal) 11/11/2008 BLESSING LOMELI MD 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 11/11/2008 BLESSING LOMELI MD V25.49 Gynecologic Service Prescrip Of Contracept Agent - Repeat Rx 11/11/2008 BLESSING LOMELI MD V69.2 Sexually Active, Frequently With [employer] 11/11/2008 BLESSING LOMELI MD V72.31 Pelvic Exam (Internal) 11/11/2008 BLESSING LOMELI MD 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 11/11/2008 BLESSING LOMELI MD V25.49 Gynecologic Service Prescrip Of Contracept Agent - Repeat Rx 11/11/2008 BLESSING LOMELI MD V69.2 Sexually Active, Frequently With [employer] 11/11/2008 BLESSING LOMELI MD V72.31 Pelvic Exam (Internal) 11/11/2008 BLESSING LOMELI MD 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 11/11/2008 BLESSING LOMELI MD V25.49 Gynecologic Service Prescrip Of Contracept Agent - Repeat Rx 11/11/2008 BLESSING LOMELI MD V69.2 Sexually Active, Frequently With [employer] 11/11/2008 BLESSING LOMELI MD V72.31 Pelvic Exam (Internal) 11/11/2008 BLESSING LOMELI MD 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 11/11/2008 BLESSING LOMELI MD V25.49 Gynecologic Service Prescrip Of Contracept Agent - Repeat Rx 11/11/2008 BLESSING LOMELI MD V69.2 Sexually Active, Frequently With [employer] 11/11/2008 BLESSING LOMELI MD V72.31 Pelvic Exam (Internal) 11/11/2008 BLESSING LOMELI MD 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 11/11/2008 BLESSING LOMELI MD V25.49 Gynecologic Service Prescrip Of Contracept Agent - Repeat Rx 11/11/2008 BLESSING LOMELI MD V69.2 Sexually Active, Frequently With [employer] 11/11/2008 BLESSING LOMELI MD V72.31 Pelvic Exam (Internal) 11/11/2008 BLESSING LOMELI MD 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 11/11/2008 BLESSING LOMELI MD V25.49 Gynecologic Service Prescrip Of Contracept Agent - Repeat Rx 11/11/2008 BLESSING LOMELI MD V69.2 Sexually Active, Frequently With [employer] 11/11/2008 BLESSING LOMELI MD V72.31 Pelvic Exam (Internal) 11/11/2008 BLESSING LOMELI MD 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 02/07/2011 JUAN R PEARSON MD 692.9 Contact Dermatitis And Other Eczema Unspecified Cause 02/07/2011 JUAN R PEARSON MD 706.1 Acne 02/07/2011 JUAN R PEARSON MD 723.1 Cervicalgia 02/07/2011 JUAN R PEARSON MD V25.09 Contraceptive Counseling 02/07/2011 ANDREA POLLOCK DO 692.9 Contact Dermatitis And Other Eczema Unspecified Cause 02/07/2011 ANDREA POLLOCK DO 706.1 Acne 02/07/2011 ANDREA POLLOCK DO 723.1 Cervicalgia 02/07/2011 ANDREA POLLOCK DO V25.09 Contraceptive Counseling 02/07/2011 MARIANELA DOWNEY APRN 692.9 Contact Dermatitis And Other Eczema Unspecified Cause 02/07/2011 MARIANELA DOWNEY APRN 706.1 Acne 02/07/2011 MARIANELA DOWNEY APRN 723.1 Cervicalgia 02/07/2011 MARIANELA DOWNEY APRN V25.09 Contraceptive Counseling 02/07/2011 MARIANELA DOWNEY APRN 692.9 Contact Dermatitis And Other Eczema Unspecified Cause 02/07/2011 MARIANELA DOWNEY APRN 706.1 Acne 02/07/2011 [employer] 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, MARIANELA A 723.1 Cervicalgia 02/07/2011 [employer] 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, MARIANELA A V25.09 Contraceptive Counseling 02/07/2011 [employer] 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, MARIANELA A 692.9 Contact Dermatitis And Other Eczema Unspecified Cause 02/07/2011 [employer] 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, MARIANELA A 706.1 Acne 02/07/2011 [employer] 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, MARIANELA A 723.1 Cervicalgia 02/07/2011 [employer] 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, MARIANELA A V25.09 Contraceptive Counseling 02/07/2011 BLESSING LOMELI MD N 692.9 Contact Dermatitis And Other Eczema Unspecified Cause 02/07/2011 BLESSING LOMELI MD N 706.1 Acne 02/07/2011 BLESSING LOMELI MD N 723.1 Cervicalgia 02/07/2011 BLESSING LOMELI MD N V25.09 Contraceptive Counseling 02/07/2011 BLESSING LOMELI MD N 692.9 Contact Dermatitis And Other Eczema Unspecified Cause 02/07/2011 BLESSING LOMELI MD N 706.1 Acne 02/07/2011 BLESSING LOMELI MD N 723.1 Cervicalgia 02/07/2011 BLESSING LOMELI MD N V25.09 Contraceptive Counseling 02/07/2011 BLESSING LOMELI MD N 692.9 Contact Dermatitis And Other Eczema Unspecified Cause 02/07/2011 BLESSING LOMELI MD N 706.1 Acne 02/07/2011 BLESSING LOMELI MD N 723.1 Cervicalgia 02/07/2011 BLESSING LOMELI MD N V25.09 Contraceptive Counseling 02/07/2011 BLESSING LOMELI MD N 692.9 Contact Dermatitis And Other Eczema Unspecified Cause 02/07/2011 BLESSING LOMELI MD N 706.1 Acne 02/07/2011 BLESSING LOMELI MD N 723.1 Cervicalgia 02/07/2011 BLESSING LOMELI MD N V25.09 Contraceptive Counseling 02/07/2011 BLESSING LOMELI MD N 692.9 Contact Dermatitis And Other Eczema Unspecified Cause 02/07/2011 BLESSING LOMELI MD N 706.1 Acne 02/07/2011 BLESSING LOMELI MD N 723.1 Cervicalgia 02/07/2011 BLESSING LOMELI MD N V25.09 Contraceptive Counseling 02/07/2011 BLESSING LOMELI MD N 692.9 Contact Dermatitis And Other Eczema Unspecified Cause 02/07/2011 BLESSING LOMELI MD N 706.1 Acne 02/07/2011 BLESSING LOMELI MD N 723.1 Cervicalgia 02/07/2011 BLESSING LOMELI MD N V25.09 Contraceptive Counseling 02/07/2011 BLESSING LOMELI MD N 692.9 Contact Dermatitis And Other Eczema Unspecified Cause 02/07/2011 BLESSING LOMELI MD N 706.1 Acne 02/07/2011 BLESSING LOMELI MD N 723.1 Cervicalgia 02/07/2011 BLESSING LOMELI MD N V25.09 Contraceptive Counseling 02/07/2011 BLESSING LOMELI MD N 692.9 Contact Dermatitis And Other Eczema Unspecified Cause 02/07/2011 BLESSING LOMELI MD N 706.1 Acne 02/07/2011 BLESSING LOMELI MD N 723.1 Cervicalgia 02/07/2011 BLESSING LOMELI MD N V25.09 Contraceptive Counseling 02/07/2011 BLESSING LOMELI MD N 692.9 Contact Dermatitis And Other Eczema Unspecified Cause 02/07/2011 BLESSING LOMELI MD N 706.1 Acne 02/07/2011 BLESSING LOMELI MD N 723.1 Cervicalgia 02/07/2011 BLESSING LOMEIL MD N V25.09 Contraceptive Counseling 02/07/2011 BLESSING LOMELI MD N 692.9 Contact Dermatitis And Other Eczema Unspecified Cause 02/07/2011 BLESSING LOMELI MD N 706.1 Acne 02/07/2011 BLESSING LOMELI MD N 723.1 Cervicalgia 02/07/2011 BLESSING LOMELI MD N V25.09 Contraceptive Counseling 02/07/2011 BLESSING LOMELI MD N 692.9 Contact Dermatitis And Other Eczema Unspecified Cause 02/07/2011 BLESSING LOMELI MD N 706.1 Acne 02/07/2011 ARMANI MD, BLESSING N 723.1 Cervicalgia 02/07/2011 ARMANI ROCK, BLESSING N V25.09 Contraceptive Counseling 05/11/2011 JUAN R PEARSON MD 727.43 GANGLION UNSPECIFIED 05/11/2011 ANDREA POLLOCK DO 727.43 GANGLION UNSPECIFIED 05/11/2011 [employer] 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, MARIANELA A 727.43 GANGLION UNSPECIFIED 05/11/2011 [employer] 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, MARIANELA A 727.43 GANGLION UNSPECIFIED 05/11/2011 [employer] 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, MARIANELA A 727.43 GANGLION UNSPECIFIED 05/11/2011 BLESSING LOMELI MD N 727.43 GANGLION UNSPECIFIED 05/11/2011 ARMANI ROCK, BLESSING N 727.43 GANGLION UNSPECIFIED 05/11/2011 ARMANI ROCK, BLESSING N 727.43 GANGLION UNSPECIFIED 05/11/2011 ARMANI ROCK BLESSING N 727.43 GANGLION UNSPECIFIED 05/11/2011 ARMANI ROCK BLESSING N 727.43 GANGLION UNSPECIFIED 05/11/2011 ARMANI ROCK BLESSING N 727.43 GANGLION UNSPECIFIED 05/11/2011 ARMANI ROCK, BLESSING N 727.43 GANGLION UNSPECIFIED 05/11/2011 ARMANI ROCK, BLESSING N 727.43 GANGLION UNSPECIFIED 05/11/2011 ARMANI ROCK, BLESSING N 727.43 GANGLION UNSPECIFIED 05/11/2011 ARMANI ROCK, BLESSING N 727.43 GANGLION UNSPECIFIED 05/11/2011 ARMANI ROCK, BLESSING N 727.43 GANGLION UNSPECIFIED 09/12/2011 JUAN R PEARSON MD 616.10 VAGINITIS VULVOVAGINITIS UNSPECIFIED 09/12/2011 JUAN R PEARSON MD 692.9 DERMATITIS CONTACT UNSPECIFIED 09/12/2011 JUAN R PEARSON MD 724.5 BACK PAIN, GENERAL 09/12/2011 JUAN R PEARSON MD V25.01 CONTRACEPTION - ORAL CONTRACEPTION 09/12/2011 JUAN R PEARSON MD V72.41 TEST NEGATIVE RESULT 09/12/2011 ANDREA POLLOCK DO 616.10 VAGINITIS VULVOVAGINITIS UNSPECIFIED 09/12/2011 ANDREA POLLOCK DO 692.9 DERMATITIS CONTACT UNSPECIFIED 09/12/2011 POLLOCK DO, ANDREA K 724.5 BACK PAIN, GENERAL 09/12/2011 ANDREA POLLOCK DO K V25.01 CONTRACEPTION - ORAL CONTRACEPTION 09/12/2011 ANDREA POLLOCK DO K V72.41 TEST NEGATIVE RESULT 09/12/2011 MILAGROS DOWNEY APRNIDI A 616.10 VAGINITIS VULVOVAGINITIS UNSPECIFIED 09/12/2011 SHAYAN BYERSNMILAGROSMARIANELA A 692.9 DERMATITIS CONTACT UNSPECIFIED 09/12/2011 SHAYAN BYERSElvin MARIANELA A 724.5 BACK PAIN, GENERAL 09/12/2011 SHAYAN BYERSElvin MARIANELA A V25.01 CONTRACEPTION - ORAL CONTRACEPTION 09/12/2011 SHAYAN VAZQUEZ MARIANELA A V72.41 TEST NEGATIVE RESULT 09/12/2011 SHAYAN BYERSElvin MARIANELA A 616.10 VAGINITIS VULVOVAGINITIS UNSPECIFIED 09/12/2011 SHAYAN BYERSElvin MARIANELA A 692.9 DERMATITIS CONTACT UNSPECIFIED 09/12/2011 [employer] 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, MARIANELA A 724.5 BACK PAIN, GENERAL 09/12/2011 SHAYAN BYERSElvin MARIANELA A V25.01 CONTRACEPTION - ORAL CONTRACEPTION 09/12/2011 SHAYAN BYERSElvin MARIANELA A V72.41 TEST NEGATIVE RESULT 09/12/2011 [employer] 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, MARIANELA A 616.10 VAGINITIS VULVOVAGINITIS UNSPECIFIED 09/12/2011 [employer]NER 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, MARIANELA A 692.9 DERMATITIS CONTACT UNSPECIFIED 09/12/2011 [employer] OWNER 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, MARIANELA A 724.5 BACK PAIN, GENERAL 09/12/2011 [employer] 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, MARIANELA A V25.01 CONTRACEPTION - ORAL CONTRACEPTION 09/12/2011 SHAYAN BYERSElvin MARIANELA A V72.41 TEST NEGATIVE RESULT 09/12/2011 BELSSING LOMELI MD 616.10 VAGINITIS VULVOVAGINITIS UNSPECIFIED 09/12/2011 BLESSING LOMELI MD 692.9 DERMATITIS CONTACT UNSPECIFIED 09/12/2011 BLESSING LOMELI MD 724.5 BACK PAIN, GENERAL 09/12/2011 BLESSING LOMELI MD V25.01 CONTRACEPTION - ORAL CONTRACEPTION 09/12/2011 BLESSING LOMELI MD V72.41 TEST NEGATIVE RESULT 09/12/2011 BLESSING LOMELI MD N 616.10 VAGINITIS VULVOVAGINITIS UNSPECIFIED 09/12/2011 BLESSING LOMELI MD N 692.9 DERMATITIS CONTACT UNSPECIFIED 09/12/2011 BLESSING LOMELI MD N 724.5 BACK PAIN, GENERAL 09/12/2011 BLESSING LOMELI MD N V25.01 CONTRACEPTION - ORAL CONTRACEPTION 09/12/2011 BLESSING LOMELI MD N V72.41 TEST NEGATIVE RESULT 09/12/2011 BLESSING LOMELI MD N 616.10 VAGINITIS VULVOVAGINITIS UNSPECIFIED 09/12/2011 BLESSING LOMELI MD N 692.9 DERMATITIS CONTACT UNSPECIFIED 09/12/2011 BLESSING LOMELI MD N 724.5 BACK PAIN, GENERAL 09/12/2011 BLESSING LOMELI MD N V25.01 CONTRACEPTION - ORAL CONTRACEPTION 09/12/2011 BLESSING LOMELI MD N V72.41 TEST NEGATIVE RESULT 09/12/2011 BLESSING LOMELI MD N 616.10 VAGINITIS VULVOVAGINITIS UNSPECIFIED 09/12/2011 BLESSING LOMELI MD N 692.9 DERMATITIS CONTACT UNSPECIFIED 09/12/2011 BLESSING LOMELI MD N 724.5 BACK PAIN, GENERAL 09/12/2011 BLESSING LOMELI MD N V25.01 CONTRACEPTION - ORAL CONTRACEPTION 09/12/2011 BLESSING LOMELI MD N V72.41 TEST NEGATIVE RESULT 09/12/2011 BLESSING LOMELI MD N 616.10 VAGINITIS VULVOVAGINITIS UNSPECIFIED 09/12/2011 BLESSING LOMELI MD N 692.9 DERMATITIS CONTACT UNSPECIFIED 09/12/2011 BLESSING LOMELI MD N 724.5 BACK PAIN, GENERAL 09/12/2011 BLESSING LOMELI MD N V25.01 CONTRACEPTION - ORAL CONTRACEPTION 09/12/2011 BLESSING LOMELI MD N V72.41 TEST NEGATIVE RESULT 09/12/2011 BLESSING LOMELI MD N 616.10 VAGINITIS VULVOVAGINITIS UNSPECIFIED 09/12/2011 BLESSING LOMELI MD N 692.9 DERMATITIS CONTACT UNSPECIFIED 09/12/2011 BLESSING LOMELI MD N 724.5 BACK PAIN, GENERAL 09/12/2011 BLESSING LOMELI MD N V25.01 CONTRACEPTION - ORAL CONTRACEPTION 09/12/2011 BLESSING LOMELI MD N V72.41 TEST NEGATIVE RESULT 09/12/2011 BLESSING LOMELI MD N 616.10 VAGINITIS VULVOVAGINITIS UNSPECIFIED 09/12/2011 BLESSING LOMELI MD N 692.9 DERMATITIS CONTACT UNSPECIFIED 09/12/2011 BLESSING LOMELI MD N 724.5 BACK PAIN, GENERAL 09/12/2011 BLESSING LOMELI MD N V25.01 CONTRACEPTION - ORAL CONTRACEPTION 09/12/2011 BLESSING LOMELI MD N V72.41 TEST NEGATIVE RESULT 09/12/2011 BLESSING LOMELI MD N 616.10 VAGINITIS VULVOVAGINITIS UNSPECIFIED 09/12/2011 BLESSING LOMELI MD N 692.9 DERMATITIS CONTACT UNSPECIFIED 09/12/2011 BLESSING LOMELI MD N 724.5 BACK PAIN, GENERAL 09/12/2011 BLESSING LOMELI MD N V25.01 CONTRACEPTION - ORAL CONTRACEPTION 09/12/2011 BLESSING LOMELI MD N V72.41 TEST NEGATIVE RESULT 09/12/2011 BLESSING LOMELI MD N 616.10 VAGINITIS VULVOVAGINITIS UNSPECIFIED 09/12/2011 BLESSING LOMELI MD N 692.9 DERMATITIS CONTACT UNSPECIFIED 09/12/2011 BLESSING LOMELI MD N 724.5 BACK PAIN, GENERAL 09/12/2011 BLESSING LOMELI MD N V25.01 CONTRACEPTION - ORAL CONTRACEPTION 09/12/2011 BLESSING LOMELI MD N V72.41 TEST NEGATIVE RESULT 09/12/2011 BLESSING LOMELI MD N 616.10 VAGINITIS VULVOVAGINITIS UNSPECIFIED 09/12/2011 BLESSING LOMELI MD N 692.9 DERMATITIS CONTACT UNSPECIFIED 09/12/2011 BLESSING LOMELI MD N 724.5 BACK PAIN, GENERAL 09/12/2011 BLESSING LOMELI MD N V25.01 CONTRACEPTION - ORAL CONTRACEPTION 09/12/2011 BLESSING LOMELI MD N V72.41 TEST NEGATIVE RESULT 09/12/2011 BLESSING LOMELI MD N 616.10 VAGINITIS VULVOVAGINITIS UNSPECIFIED 09/12/2011 BLESSING LOMELI MD 692.9 DERMATITIS CONTACT UNSPECIFIED 09/12/2011 BLESSING LOMELI MD 724.5 BACK PAIN, GENERAL 09/12/2011 BLESSING LOMELI MD V25.01 CONTRACEPTION - ORAL CONTRACEPTION 09/12/2011 BLESSING LOMELI MD V72.41 TEST NEGATIVE RESULT 09/17/2011 JUAN R PEARSON MD V25.02 CONTRACEPTION - ANY METHOD 09/17/2011 ANDREA POLLOCK DO V25.02 CONTRACEPTION - ANY METHOD 09/17/2011 MARIANELA DOWNEY APRN V25.02 CONTRACEPTION - ANY METHOD 09/17/2011 MARIANELA DOWNEY APRN V25.02 CONTRACEPTION - ANY METHOD 09/17/2011 MARIANELA DOWNEY APRN V25.02 CONTRACEPTION - ANY METHOD 09/17/2011 BLESSING LOMELI MD V25.02 CONTRACEPTION - ANY METHOD 09/17/2011 BLESSING LOMELI MD V25.02 CONTRACEPTION - ANY METHOD 09/17/2011 BLESSING LOMELI MD V25.02 CONTRACEPTION - ANY METHOD 09/17/2011 BLESSING LOMELI MD V25.02 CONTRACEPTION - ANY METHOD 09/17/2011 BLESSING LOMELI MD V25.02 CONTRACEPTION - ANY METHOD 09/17/2011 BLESSING LOMELI MD V25.02 CONTRACEPTION - ANY METHOD 09/17/2011 BLESSING LOMELI MD V25.02 CONTRACEPTION - ANY METHOD 09/17/2011 BLESSING LOMELI MD V25.02 CONTRACEPTION - ANY METHOD 09/17/2011 BLESSING LOMELI MD V25.02 CONTRACEPTION - ANY METHOD 09/17/2011 BLESSING LOMELI MD V25.02 CONTRACEPTION - ANY METHOD 09/17/2011 BLESSING LOMELI MD V25.02 CONTRACEPTION - ANY METHOD 09/18/2011 JUAN R PEARSON MD V25.11 IUD INSERTION 09/18/2011 JUAN R PEARSON MD V25.9 CONTRACEPTION MANAGEMENT 09/18/2011 ANDREA POLLOCK DO V25.11 IUD INSERTION 09/18/2011 ANDREA POLLOCK DO V25.9 CONTRACEPTION MANAGEMENT 09/18/2011 [employer] 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, MARIANELA A V25.11 IUD INSERTION 09/18/2011 [employer] 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, MARIANELA A V25.9 CONTRACEPTION MANAGEMENT 09/18/2011 [employer] 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, MARIANELA A V25.11 IUD INSERTION 09/18/2011 [employer] OW[employer] 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, MARIANELA A V25.9 CONTRACEPTION MANAGEMENT 09/18/2011 [employer] OW[employer] 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, MARIANELA A V25.11 IUD INSERTION 09/18/2011 [employer] OWNER 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, MARIANELA A V25.9 CONTRACEPTION MANAGEMENT 09/18/2011 BLESSING LOMELI MD V25.11 IUD INSERTION 09/18/2011 BLESSING LOMELI MD V25.9 CONTRACEPTION MANAGEMENT 09/18/2011 BLESSING LOMELI MD V25.11 IUD INSERTION 09/18/2011 BLESSING LOMELI MD V25.9 CONTRACEPTION MANAGEMENT 09/18/2011 BLESSING LOMELI MD V25.11 IUD INSERTION 09/18/2011 BLESSING LOMELI MD V25.9 CONTRACEPTION MANAGEMENT 09/18/2011 BLESSING LOMELI MD V25.11 IUD INSERTION 09/18/2011 BLESSING LOMELI MD V25.9 CONTRACEPTION MANAGEMENT 09/18/2011 BLESSING LOMELI MD V25.11 IUD INSERTION 09/18/2011 BLESSING LOMELI MD V25.9 CONTRACEPTION MANAGEMENT 09/18/2011 BLESSING LOMELI MD V25.11 IUD INSERTION 09/18/2011 BLESSING LOMELI MD N V25.9 CONTRACEPTION MANAGEMENT 09/18/2011 BLESSING LOMELI MD N V25.11 IUD INSERTION 09/18/2011 BLESSING LOMELI MD V25.9 CONTRACEPTION MANAGEMENT 09/18/2011 BLESSING LOMELI MD V25.11 IUD INSERTION 09/18/2011 BLESSING LOMELI MD N V25.9 CONTRACEPTION MANAGEMENT 09/18/2011 BLESSING LOMELI MD V25.11 IUD INSERTION 09/18/2011 BLESSING LOMELI MD V25.9 CONTRACEPTION MANAGEMENT 09/18/2011 BLESSING LOMELI MD V25.11 IUD INSERTION 09/18/2011 BLESSING LOMELI MD V25.9 CONTRACEPTION MANAGEMENT 09/18/2011 BLESSING LOMELI MD V25.11 IUD INSERTION 09/18/2011 BLESSING LOMELI MD V25.9 CONTRACEPTION MANAGEMENT 10/08/2011 JUAN R PEARSON MD 078.0 MOLLUSCUM CONTAGIOSUM 10/08/2011 JUAN R PEARSON MD 706.1 ACNE 10/08/2011 POLLOCK DOANDREA K 078.0 MOLLUSCUM CONTAGIOSUM 10/08/2011 POLLOCK DOANDREA K 706.1 ACNE 10/08/2011 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, MARIANELA A 078.0 MOLLUSCUM CONTAGIOSUM 10/08/2011 [employer] 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, MARIANELA A 706.1 ACNE 10/08/2011 [employer] 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, MARIANELA A 078.0 MOLLUSCUM CONTAGIOSUM 10/08/2011 [employer] 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, MARIANELA A 706.1 ACNE 10/08/2011 [employer] 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, MARIANELA A 078.0 MOLLUSCUM CONTAGIOSUM 10/08/2011 [employer] 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, MARIANELA A 706.1 ACNE 10/08/2011 BLESSING LOMELI MD N 078.0 MOLLUSCUM CONTAGIOSUM 10/08/2011 ARMANI ROCK, BLESSING N 706.1 ACNE 10/08/2011 BLESSING LOMELI MD N 078.0 MOLLUSCUM CONTAGIOSUM 10/08/2011 BLESSING LOMELI MD N 706.1 ACNE 10/08/2011 BLESSING LOMELI MD N 078.0 MOLLUSCUM CONTAGIOSUM 10/08/2011 BLESSING LOMELI MD N 706.1 ACNE 10/08/2011 BLESSING LOMELI MD N 078.0 MOLLUSCUM CONTAGIOSUM 10/08/2011 BLESSING LOMELI MD N 706.1 ACNE 10/08/2011 BLESSING LOMELI MD N 078.0 MOLLUSCUM CONTAGIOSUM 10/08/2011 BLESSING LOMELI MD N 706.1 ACNE 10/08/2011 BLESSING LOMELI MD N 078.0 MOLLUSCUM CONTAGIOSUM 10/08/2011 ARMANI ROCK, BLESSING N 706.1 ACNE 10/08/2011 ARMANI ROCK, BLESSING N 078.0 MOLLUSCUM CONTAGIOSUM 10/08/2011 ARMANI ROCK, BLESSING N 706.1 ACNE 10/08/2011 ARMANI ROCK, BLESSING N 078.0 MOLLUSCUM CONTAGIOSUM 10/08/2011 ARMANI ROCK, BLESSING N 706.1 ACNE 10/08/2011 ARMANI ROCK, BLESSING N 078.0 MOLLUSCUM CONTAGIOSUM 10/08/2011 ARMANI ROCK, BLESSING N 706.1 ACNE 10/08/2011 ARMANI ROCK, BLESSING N 078.0 MOLLUSCUM CONTAGIOSUM 10/08/2011 ARMANI ROCK, BLESSING N 706.1 ACNE 10/08/2011 ARMANI ROCK, BLESSING N 078.0 MOLLUSCUM CONTAGIOSUM 10/08/2011 ARMANI ROCK, BLESSING N 706.1 ACNE 11/12/2011 JUAN R PEARSON MD 625.9 PELVIC PAIN 11/12/2011 JUAN R PEARSON MD 626.4 IRREGULAR MENSTRUAL CYCLE 11/12/2011 JUAN R PEARSON MD V25.42 CONTRACEPTION SURVEILLANCE (IUD) 11/12/2011 ANDREA POLLOCK DO 625.9 PELVIC PAIN 11/12/2011 ANDREA POLLOCK DO 626.4 IRREGULAR MENSTRUAL CYCLE 11/12/2011 ANDREA POLLOCK DO V25.42 CONTRACEPTION SURVEILLANCE (IUD) 11/12/2011 MARIANELA DOWNEY APRN 625.9 PELVIC PAIN 11/12/2011 MARIANELA DOWNEY APRN A 626.4 IRREGULAR MENSTRUAL CYCLE 11/12/2011 MARIANELA DOWNEY APRN V25.42 CONTRACEPTION SURVEILLANCE (IUD) 11/12/2011 MARIANELA DOWNEY APRN 625.9 PELVIC PAIN 11/12/2011 MARIANELA DOWNEY APRN A 626.4 IRREGULAR MENSTRUAL CYCLE 11/12/2011 MARIANELA DOWNEY APRN V25.42 CONTRACEPTION SURVEILLANCE (IUD) 11/12/2011 MARIANELA DOWNEY APRN 625.9 PELVIC PAIN 11/12/2011 MARIANELA DOWNEY APRN 626.4 IRREGULAR MENSTRUAL CYCLE 11/12/2011 MARIANELA DOWNYE APRN V25.42 CONTRACEPTION SURVEILLANCE (IUD) 11/12/2011 BLESSING LOMELI MD N 625.9 PELVIC PAIN 11/12/2011 BLESSING LOMELI MD N 626.4 IRREGULAR MENSTRUAL CYCLE 11/12/2011 BLESSING LOMELI MD V25.42 CONTRACEPTION SURVEILLANCE (IUD) 11/12/2011 BLESSING LOMELI MD N 625.9 PELVIC PAIN 11/12/2011 BLESSING LOMELI MD N 626.4 IRREGULAR MENSTRUAL CYCLE 11/12/2011 BLESSING LOMELI MD V25.42 CONTRACEPTION SURVEILLANCE (IUD) 11/12/2011 BLESSING LOMELI MD 625.9 PELVIC PAIN 11/12/2011 BLESSING LOMELI MD N 626.4 IRREGULAR MENSTRUAL CYCLE 11/12/2011 BLESSING LOMELI MD V25.42 CONTRACEPTION SURVEILLANCE (IUD) 11/12/2011 BLESSING LOMELI MD 625.9 PELVIC PAIN 11/12/2011 BLESSING LOMELI MD N 626.4 IRREGULAR MENSTRUAL CYCLE 11/12/2011 BLESSING LOMELI MD V25.42 CONTRACEPTION SURVEILLANCE (IUD) 11/12/2011 BLESSING LOMELI MD N 625.9 PELVIC PAIN 11/12/2011 BLESSING LOMELI MD N 626.4 IRREGULAR MENSTRUAL CYCLE 11/12/2011 BLESSING LOMELI MD V25.42 CONTRACEPTION SURVEILLANCE (IUD) 11/12/2011 BLESSING LOMELI MD N 625.9 PELVIC PAIN 11/12/2011 BLESSING LOMELI MD N 626.4 IRREGULAR MENSTRUAL CYCLE 11/12/2011 BLESSING LOMELI MD V25.42 CONTRACEPTION SURVEILLANCE (IUD) 11/12/2011 BLESSING LOMELI MD N 625.9 PELVIC PAIN 11/12/2011 BLESSING LOMELI MD N 626.4 IRREGULAR MENSTRUAL CYCLE 11/12/2011 BLESSING LOMELI MD V25.42 CONTRACEPTION SURVEILLANCE (IUD) 11/12/2011 BLESSING LOMELI MD 625.9 PELVIC PAIN 11/12/2011 BLESSING LOMELI MD 626.4 IRREGULAR MENSTRUAL CYCLE 11/12/2011 BLESSING LOMELI MD V25.42 CONTRACEPTION SURVEILLANCE (IUD) 11/12/2011 BLESSING LOMELI MD N 625.9 PELVIC PAIN 11/12/2011 BLESSING LOMELI MD N 626.4 IRREGULAR MENSTRUAL CYCLE 11/12/2011 BLESSING LOMELI MD V25.42 CONTRACEPTION SURVEILLANCE (IUD) 11/12/2011 BLESSING LOMELI MD N 625.9 PELVIC PAIN 11/12/2011 BLESSING LOMELI MD 626.4 IRREGULAR MENSTRUAL CYCLE 11/12/2011 BLESSING LOMELI MD V25.42 CONTRACEPTION SURVEILLANCE (IUD) 11/12/2011 BLESSING LOMELI MD 625.9 PELVIC PAIN 11/12/2011 BLESSING LOMELI MD 626.4 IRREGULAR MENSTRUAL CYCLE 11/12/2011 BLESSING LOMELI MD V25.42 CONTRACEPTION SURVEILLANCE (IUD) 02/12/2012 JUAN R PEARSON MD V25.12 IUD REMOVAL 02/12/2012 ANDREA POLLOCK DO V25.12 IUD REMOVAL 02/12/2012 MARIANELA DOWNEY APRN V25.12 IUD REMOVAL 02/12/2012 MARIANELA DOWNEY APRN V25.12 IUD REMOVAL 02/12/2012 MARIANELA DOWNEY APRN V25.12 IUD REMOVAL 02/12/2012 BLESSING LOMLEI MD V25.12 IUD REMOVAL 02/12/2012 BLESSING LOMELI MD V25.12 IUD REMOVAL 02/12/2012 BLESSING LOMELI MD V25.12 IUD REMOVAL 02/12/2012 BLESSING LOMELI MD V25.12 IUD REMOVAL 02/12/2012 BLESSING LOMELI MD V25.12 IUD REMOVAL 02/12/2012 BLESSING LOMELI MD V25.12 IUD REMOVAL 02/12/2012 BLESSING LOMELI MD V25.12 IUD REMOVAL 02/12/2012 BLESSING LOMELI MD V25.12 IUD REMOVAL 02/12/2012 BLESSING LOMELI MD V25.12 IUD REMOVAL 02/12/2012 BLESSING LOMELI MD V25.12 IUD REMOVAL 02/12/2012 BLESSING LOMELI MD V25.12 IUD REMOVAL 09/22/2013 POLLOCK ANDREA MINAYA Phi V72.42 TEST POSITIVE RESULT 09/22/2013 SHAYANWILMER VAZQUEZ, MARIANELA A V72.42 TEST POSITIVE RESULT 09/22/2013 SHAYAN APRN, MARIANELA A V72.42 TEST POSITIVE RESULT 09/22/2013 SHAYAN APRN, MARIANELA A V72.42 TEST POSITIVE RESULT 09/22/2013 BLESSING LOMELI MD V72.42 TEST POSITIVE RESULT 09/22/2013 BLESSING LOMELI MD V72.42 TEST POSITIVE RESULT 09/22/2013 BLESSING LOMELI MD V72.42 TEST POSITIVE RESULT 09/22/2013 BLESSING LOMELI MD V72.42 TEST POSITIVE RESULT 09/22/2013 BLESSING LOMELI MD V72.42 TEST POSITIVE RESULT 09/22/2013 BLESSING LOMELI MD V72.42 TEST POSITIVE RESULT 09/22/2013 BLESSING LOMELI MD V72.42 TEST POSITIVE RESULT 09/22/2013 BLESSING LOMELI MD V72.42 TEST POSITIVE RESULT 09/22/2013 BLESSING LOMELI MD V72.42 TEST POSITIVE RESULT 09/22/2013 BLESSING LOMELI MD V72.42 TEST POSITIVE RESULT 09/22/2013 BLESSING LOMELI MD V72.42 TEST POSITIVE RESULT 10/18/2013 SHAYAN VAZQUEZ, MARIANELA A 654.20 PREVIOUS 10/18/2013 SHAYAN VAZQUEZ, MARIANELA A V22.1 , NORMAL OTHER 10/18/2013 SHAYAN APRN, MARIANELA A 654.20 PREVIOUS 10/18/2013 SHAYAN VAZQUEZ, MARIANELA A V22.1 , NORMAL OTHER 10/18/2013 SHAYAN VAZQUEZ, MARIANELA A 654.20 PREVIOUS 10/18/2013 SHAYAN APRN, MARIANELA A V22.1 , NORMAL OTHER 10/18/2013 BLESSING LOMELI MD N 654.20 PREVIOUS 10/18/2013 ARMANI MD, BLESSING N V22.1 , NORMAL OTHER 10/18/2013 ARMANI ROCK, BLESSING N 654.20 PREVIOUS 10/18/2013 BLESSING LOMELI MD N V22.1 , NORMAL OTHER 10/18/2013 ARMANI ROCK, BLESSING N 654.20 PREVIOUS 10/18/2013 BLESSING LOMELI MD N V22.1 , NORMAL OTHER 10/18/2013 BLESSING LOMELI MD N 654.20 PREVIOUS 10/18/2013 BLESSING LOMELI MD N V22.1 , NORMAL OTHER 10/18/2013 ARMANI ROCK BLESSING N 654.20 PREVIOUS 10/18/2013 BLESSING LOMELI MD N V22.1 , NORMAL OTHER 10/18/2013 NEHAL LOMELI MDY N 654.20 PREVIOUS 10/18/2013 BLESSING LOMELI MD N V22.1 , NORMAL OTHER 10/18/2013 ARMANI ROCK BLESSING N 654.20 PREVIOUS 10/18/2013 BLESSING LOMELI MD N V22.1 , NORMAL OTHER 10/18/2013 ARMANI ROCK BLESSING N 654.20 PREVIOUS 10/18/2013 BLESSING LOMELI MD N V22.1 , NORMAL OTHER 10/18/2013 ARMANI ROCK, BLESSING N 654.20 PREVIOUS 10/18/2013 BLESSING LOMELI MD N V22.1 , NORMAL OTHER 10/18/2013 NEHAL LOMELI MDY N 654.20 PREVIOUS 10/18/2013 BLESSING LOMELI MD N V22.1 , NORMAL OTHER 10/18/2013 ARMANI ROCK BLESSING N 654.20 PREVIOUS 10/18/2013 BLESSING LOMELI MD N V22.1 , NORMAL OTHER 01/30/2014 ODESSA ROCK, CAIN Schaeffer Ot 649.53 SPOTTING COMP , ANTEPARTUM COND 03/01/2014 BLESSING LOMELI MD Ot 648.93 OTH CURR COND-ANTEPARTUM 03/01/2014 BLESSING LOMELI MD N Ot 789.00 ABDOMINAL PAIN, UNSPECIFIED SITE 04/08/2014 BLESSING LOMELI MD N V06.1 TDAP DX 04/08/2014 BLESSING LOMELI MD V06.1 TDAP DX 04/08/2014 BLESSING LOMELI MD V06.1 TDAP DX 04/08/2014 BLESSING LOMELI MD V06.1 TDAP DX 04/08/2014 BLESSING LOMELI MD V06.1 TDAP DX 04/08/2014 BLESSING LOMELI MD V06.1 TDAP DX 04/08/2014 BLESSING LOMELI MD V06.1 TDAP DX 04/08/2014 BLESSING LOMELI MD V06.1 TDAP DX 04/18/2014 BLESSING LOMELI MD Ot 276.51 DEHYDRATION 04/18/2014 BLESSING LOMELI MD Ot 648.93 OTH CURR COND-ANTEPARTUM 04/18/2014 BLESSING LOMELI MD Ot 787.02 NAUSEA ALONE 04/18/2014 BLESSING LOMELI MD Ot 787.91 DIARRHEA 04/23/2014 BLESSING LOMELI MD Ot 646.83 PREG COMPL NEC-ANTEPART 04/23/2014 BLESSING LOMELI MD Ot 786.52 PAINFUL RESPIRATION 04/23/2014 BLESSING LOMELI MD Ot V04.81 ND FOR PROPHYLACTIC VACCIN AND INOCULATI 2014 BLESSING LOMELI MD Ot 276.51 DEHYDRATION 2014 BLESSING LOMELI MD Ot 644.03 THRT LOI LABOR-ANTEPART 2014 BLESSING LOMELI MD Ot 644.13 THREAT LABOR NEC-ANTEPAR 2014 BLESSING LOMELI MD Ot 654.23 PREV DELIVERY, ANTEPARTUM COND 05/18/2014 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 V22.1 05/18/2014 MARIANEAL DOWNEY APRN Ot V22.1 05/21/2014 BLESSING LOMELI MD Ot 647.61 OTH VIRAL DIS-DELIVERED 05/21/2014 BLESSING LOMELI MD Ot 654.21 PREV DELIVRY W/ OR W/O MENT ANT 05/21/2014 BLESSING LOMELI MD Ot V27.0 DELIVER-SINGLE LIVEBORN 06/16/2015 Ot O34.21 MATERNAL CARE FOR SCAR FROM PREVIOUS TRAE 06/16/2015 Ot Z3A.33 33 WEEKS GESTATION OF 07/01/2015 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 V22.1 07/01/2015 FENECH , EDILSON S Ot 654.23 07/01/2015 [facility] EDILSON S Ot V72.84 07/01/2015 BLESSING LOMELI MD, Ot B37.3 CANDIDIASIS OF VULVA AND VAGINA 07/01/2015 BLESSING LOMELI MD, Ot N76.0 ACUTE VAGINITIS 07/01/2015 BLESSING LOMELI MD, Ot O98.813 OTH MATERNAL INFEC/PARASTC DISEASES COMP 07/01/2015 BLESSING LOMELI MD, Ot Z3A.36 36 WEEKS GESTATION OF 07/07/2015 BLESSING LOMELI MD, Ot O23.43 UNSP INFCT OF URINARY TRACT IN 07/07/2015 BLESSING LOMELI MD, Ot Z3A.37 37 WEEKS GESTATION OF 07/13/2015 BLESSING LOMELI MD Ot O47.03 FALSE LABOR BEFORE 37 COMPLETED WEEKS OF 07/13/2015 BLESSING LOMELI MD, Ot Z3A.37 37 WEEKS GESTATION OF 07/14/2015 MILAGROS DOWNEYIDI Vamsi [employer] OWNER 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 Ot V22.1 07/14/2015 FENECH , EDILSON S Ot 654.23 07/14/2015 [facility] DO EDILSON S Ot V72.84 07/16/2015 BLESSING LOMELI MD Ot D62 ACUTE POSTHEMORRHAGIC ANEMIA 07/16/2015 BLESSING LOMELI MD Ot O21.9 VOMITING OF , UNSPECIFIED 07/16/2015 BLESSING LOMELI MD Ot O34.21 MATERNAL CARE FOR SCAR FROM PREVIOUS TRAE 07/16/2015 BLESSING LOMELI MD Ot O90.81 ANEMIA OF THE PUERPERIUM 07/16/2015 BLESSING LOMELI MD Ot O90.89 OTH COMPLICATIONS OF THE PUERPERIUM, NEC 07/16/2015 BLESSING LOMELI MD Ot R33.9 RETENTION OF URINE, UNSPECIFIED 07/16/2015 BLESSING LOMELI MD Ot Z37.0 SINGLE LIVE 07/16/2015 BLESSING LOMELI MD Ot Z3A.38 38 WEEKS GESTATION OF 10/02/2015 MARIANELA DOWNEY APRN Ot V22.1 [facility] NORMAL PREG 10/02/2015 EDILSON HUBBARD DO Ot 654.23 PREV DELIVERY, ANTEPARTUM COND 10/02/2015 EDILSON HUBBARD DO Ot V72.84 EXAM PRE-OPERATIVE NOS Procedures Code Description [place] [address] GC/CHLAM PROBE (STATE) 07/22/2013 14636 TEST, URINE (IN-HOUSE) 07/22/2013 13004 UA LONG DIP 07/22 95311 TRICHOMONAS (IN-HOUSE) 07/23/2013 47377 CULTURE UROGENITAL 07/26/2013 18688 TEST, URINE (IN-HOUSE) 09/22/2013 84297 US OB - COMPLETE >14 WEEKS 01/05/2014 48330 UA OB DIP 2013 34052 URINE DRUG SCREEN (IN-HOUSE) 01/05/2014 16049 UA OB DIP 2013 55969 ROUTINE VENIPUNCTURE 03/08/2014 20533 UA OB DIP 2013 58279 GLUCOSE CYRUS 1 HOUR 03/08/2014 34226 CBC 03/08/2014 38102 UA OB DIP 2013 61531 UA OB DIP 2013 30181 CULTURE GROUP B STREP VAG 2014 97632 UA OB DIP 2013 04765 ROUTINE VENIPUNCTURE 05/17/2014 23108 UA LONG DIP 05/17 17111 CBC 05/17/2014 87623 CMP 05/17/2014 43539 LDH 05/17/2014 73736 URIC ACID 2013 [id number] GFR CALC (RESULT ONLY) 05/17/2014 72.79 05/19/2014 74.1 05/19/2014 81414 URINE PROTEIN 24 HOUR 05/20/2014 [id number] 07/14/2015 Results Encounters ACCT No. Visit Date/Time Discharge Status Pt. Type Provider Facility Loc./Unit Complaint [id number] 06/06/2014 14:25:00 06/06/2014 23: 59:59 CLS Outpatient BLESSING LOMELI MD [id number] 05/18/2014 15:31:00 05/18/2014 23: 59:59 CLS Outpatient BLESSING LOMELI MD [id number] 05/17/2014 15:08:00 05/17/2014 23: 59:59 CLS Outpatient BLESSING LOMELI MD [id number] 05/17/2014 15:08:00 05/17/2014 23: 59:59 CLS Outpatient BLESSING LOMELI MD [id number] 2014 12:37:00 2014 23: 59:59 CLS Outpatient BLESSING LOMELI MD [id number] 04/26/2014 11:35:00 04/26/2014 23: 59:59 CLS Outpatient BLESSING LOMELI MD [id number] 04/08/2014 09:06:00 04/08/2014 23: 59:59 CLS Outpatient BLESSING LOMELI MD [id number] 04/08/2014 09:06:00 04/08/2014 23: 59:59 CLS Outpatient BLESSING LOMELI MD [id number] 03/08/2014 08:26:00 03/08/2014 23: 59:59 CLS Outpatient BLESSING LOMELI MD [id number] 02/02/2014 10:43:00 02/02/2014 23: 59:59 CLS Outpatient BLESSING LOMELI MD [id number] 02/02/2014 10:43:00 02/02/2014 23: 59:59 CLS Outpatient BLESSING LOMELI MD [id number] 01/05/2014 10:08:00 01/05/2014 23: 59:59 CLS Outpatient MARIANELA DOWNEY APRN [id number] 01/05/2014 10:08:00 01/05/2014 23: 59:59 CLS Outpatient MARIANELA DOWNEY APRN [id number] 10/18/2013 10:30:00 10/18/2013 23: 59:59 CLS Outpatient MARIANELA DOWNEY APRN [id number] 09/22/2013 11:04:00 09/22/2013 23: 59:59 CLS Outpatient ANDREA POLLOCK DO [id number] 07/22/2013 18:41:00 07/22/2013 23: 59:59 CLS Outpatient JUAN R PEARSON MD [id number] 05/15/2015 14:54:52 05/15/2015 23: 59:59 CLS Outpatient Dyan Goodman [id number] 05/03/2015 16:14:26 05/03/2015 23: 59:59 CLS Outpatient Dyan Goodman [id number] 04/24/2015 14:29:30 04/24/2015 23: 59:59 CLS Outpatient Dyan Goodman [id number] 03/27/2015 11:00:41 03/27/2015 23: 59:59 CLS Outpatient Dyan Goodman [id number] 02/22/2015 16:48:40 02/22/2015 23: 59:59 CLS Outpatient Dyan Goodman [id number] 01/17/2015 14:15:20 01/17/2015 23: 59:59 CLS Outpatient Thiago Ho [id number] 01/09/2015 12:09:26 01/09/2015 23: 59:59 CLS Outpatient Donna Bacon [id number] 07/14/2015 08:57:00 2015 15:45:00 DIS Inpatient BLESSING LOMELI MD [facility] [id number] 07/13/2015 20:27:00 2015 22:15:00 DIS Outpatient BLESSING LOMELI MD [facility] [id number] 07/07/2015 14:52:00 2015 17:40:00 DIS Outpatient BLESSING LOMELI MD [facility] [id number] 07/01/2015 00:31:00 2015 02:07:00 DIS Outpatient [facility]EL[facility] [id number] 05/26/2014 08:00:00 2014 23:59:59 CLS Preadmit EDILSON HUBBARD DO [id number] 05/19/2014 00:25:00 2014 14:00:00 DIS Inpatient BLESSING LOMELI MD [facility] [id number] 05/20/2014 05:57:00 2014 23:59:59 CLS Outpatient EDILSON HUBBARD DO Via [facility] PREOP [id number] 2014 15:45:00 2013 20:00:00 DIS Outpatient BLESSING LOMELI MD [facility] [id number] 04/23/2014 15:07:00 2013 17:46:00 DIS Outpatient BLESSING LOMELI MD [facility] [id number] 04/18/2014 15:12:00 2013 23:59:59 CLS Outpatient BLESSING LOMELI MD [facility] [id number] 03/01/2014 17:03:00 2013 18:15:00 DIS Outpatient BLESSING LOMELI MD [facility] [id number] 01/30/2014 12:08:00 2013 13:30:00 DIS Outpatient CAIN SAXENA MD [facility] [id number] 01/11/2014 14:15:00 2013 23:59:59 CLS Outpatient MARIANELA DOWNEY APRN [facility] [id number] 06/19/2015 09:11:00 Document Registration
[2017-03-21 04:30] VITALS: BP 140/85
== END 2017-03-20 04:30 | disposition home or self-care (01) ==
LOC: EDUNIT# 04:10 → ER 04:13
DX: S01.01XD Laceration without foreign body of scalp, subsequent encounter (principal); X58.XXXD Exposure to other specified factors, subsequent encounter

== ENCOUNTER 2017-06-01 11:49 | Emergency (ER) | payer MEDICAID ==
[~2017-06-01] VITALS: Ht 157.5 cm; Wt 68.0 kg
[~2017-06-01 11:49] MED LIST changes: -HYDR-3812 PO
--- NOTE | 2017-06-01 13:07 | ED Head Injury ---
General Chief Complaint: Head/Cervical Problems Stated Complaint: FALL/HEAD LAC Nursing Triage Note: Patient advises she was walking to her mothers apartment when she fell and struck her face on the concrete. She advises that she did not loose consciousness at the time of the incident. Incident occured at 1130. Source: patient Exam Limitations: no limitations History of Present Illness Time seen by provider: 13:07 Initial Comments 22-year-old female patient presents to the emergency department with reports laceration to the forehead after falling and she was walking to her mother's apartment. Patient reports striking her face on the concrete. Denies loss of consciousness or confusion, but did feel a little dazed. Denies neck or back pain. Occurred: this morning Location: frontal (forehead) Method of Injury: fell Loss of Consciousness: dazed Allergies and Home Medications Allergies Coded Allergies: Sulfa (Sulfonamide Antibiotics) (Unverified Allergy, Unknown, rash, ) sulfamethoxazole (Unverified Allergy, Unknown, rash, 05/10/14) trimethoprim (Unverified Allergy, Unknown, rash, 05/10/14) Home Medications Clotrimazole 45 Gm Cr, 45 GM VG HS for 7 Days Prescribed by: ES OSORIO on 07/07/15 1732 Docusate Sodium 100 Mg Capsule, 100 MG PO BID, #60 Prescribed by: SILVESTRE BERTRAND on 07/16/15 1404 Hydrocodone Bit/Acetaminophen 1 Each Tablet, 1-2 TAB PO Q4H PRN for PAIN, #45 Prescribed by: SILVESTRE BERTRAND on 07/16/15 1404 Ibuprofen 600 Mg Tablet, 600 MG PO Q6H, #40 Ref 1 Prescribed by: SILVESTRE BERTRAND on 07/16/15 1404 Vit/Fe Fumarate/Fa 1 Each Tablet, 1 TAB PO DAILY, (Reported) Constitutional: see HPI, dizziness, No weakness Eyes: Denies Blurred Vision, Denies Drainage, Denies Decreased Acuity, Denies Pain, Denies Photophobia, Denies Vision Changes Ears, Nose, Mouth, Throat: see HPI, denies ear pain, denies ear discharge, denies nose pain, denies nose discharge, denies epistaxis, denies mouth pain, denies loose teeth, denies throat pain Respiratory: No cough, No dyspnea on exertion, No hemoptysis, No short of breath, No stridor, No wheezing Cardiovascular: no symptoms reported Gastrointestinal: no symptoms reported Genitourinary: no symptoms reported Musculoskeletal: No back pain, No joint pain, No neck pain Skin: see HPI, other (laceration of the forehead) Psychiatric/Neurological: Denies Cognitive Dysfunction, Headache, Denies Numbness, Denies [place] Seizures, Denies Tingling, Denies Tonic Clonic Seizures, Denies Unable to Move Lower Ext, Denies Unable to Move Upper Ext, Denies Weakness All Other Systems Reviewed Negative Unless Noted: Yes (Negative excepted noted.) Past Yddxljp-Uddcai-Yqapdd Hx Patient Social History Alcohol Use: Denies Use Recreational Drug Use: No Smoking Status: Never a Smoker Recent Foreign Travel: No Contact w/Someone Who Travel: No Recent Infectious Disease Expo: No Physical Abuse: No Sexual Abuse: No Immunizations Up To Date Tetanus Booster (TDap): Less than 5yrs PED Vaccines UTD: No Date of Influenza Vaccine: Feb 16, 2015 Surgeries History of Surgeries: Yes Surgeries: Section, Gallbladder Respiratory History of Respiratory Disorde: Yes Respiratory Disorders: Asthma Cardiovascular History of Cardiac Disorders: No Neurological History of Neurological Disord: No Reproductive System Hx Reproductive Disorders: No Genitourinary History of Genitourinary Disor: No Gastrointestinal History of Gastrointestinal Di: No Musculoskeletal History of Musculoskeletal Dis: No Endocrine History of Endocrine Disorders: No HEENT History of HEENT Disorders: No Cancer History of Cancer: No Psychosocial History of Psychiatric Problem: No Suicide Risk Score: 0 Integumentary History of Skin or Integumenta: No Blood Transfusions History of Blood Disorders: No Adverse Reaction to a Blood Tr: No Reviewed Nursing Assessment Reviewed/Agree w Nursing PMH: Yes Family Medical History Significant Family History: No Pertinent Family Hx Family Medial History: FH: cerebral palsy G8 BROTHER Physical Exam Vital Signs Vital Sign - Last 12Hours 06/01/17 12:21 Temp 98.4 Pulse 98 Resp 16 B/P (MAP) 124/84 (97) Pulse Ox 98 O2 Delivery Room Air Capillary Refill : Less Than 3 Seconds General Appearance: WD/WN, no apparent distress HEENT: PERRL/EOMI, normal ENT inspection, TMs normal, pharynx normal, other (3 cm "L-shaped" laceration of the forehead without active bleeding. mild swelling and ecchymosis noted. mild ttp. No evidence of skull depression noted.) Neck: non-tender, full range of motion, supple, normal inspection Cardiovascular: normal peripheral pulses, regular rate, rhythm, no edema, no murmur Respiratory: chest non-tender, lungs clear, normal breath sounds, no respiratory distress, no accessory muscle use Gastrointestinal: normal bowel sounds, non tender, soft, no organomegaly Back: normal inspection, no vertebral tenderness Extremities: non-tender, normal inspection, no pedal edema, normal capillary refill, pelvis stable Psychiatric: alert, oriented x 3 Crainal Nerves: normal hearing, normal speech, PERRL Coordination/Gait: normal finger to nose, normal gait, negative Romberg's sign Motor/Sensory: no motor deficit, no sensory deficit, no pronator drift Skin: normal color, warm/dry, other (3 cm "L-shaped" laceration of the forehead without active bleeding.) [place] Coma Score Best Eye Response: (4) Open Spontaneously Best Verbal Response: (5) Oriented Best Motor Response: (6) Obeys Commands [place] Total: 15 Laceration Repair : Wound Length (cm): 3 Wound's Depth, Shape: superficial, stellate Wound Explored: clean Betadine Prep?: No (wound scrubbed with chlorhexidine and sterile saline) Other Closure Supply: Wound Adhesive Layer Closure?: 1 Sterile Dressing Applied?: Yes Progress blood loss minimal. patient tolerated the procedure well. Progress/Results/Core Measures Results/Orders My Orders Orders - JOHN CHRISTIANSEN Ct Head Wo (06/01/17 13:03) Urine Bedside (06/01/17 13:41) Vital Signs/I&O Vital Sign - Last 12Hours 06/01/17 14:51 Pulse 73 Resp 14 Pulse Ox 98 O2 Delivery Room Air Blood Pressure Mean: 97 Diagnostic Imaging Diagonstic Imaging: CT Plain Films/CT/US/NM/MRI: head Comments CT HEAD WO PROCEDURE: CT head without contrast. TECHNIQUE: Multiple contiguous axial images were obtained through the brain without the use of intravenous contrast. INDICATION: Fall. Head injury. COMPARISON: CT head without contrast . FINDINGS: No intracranial hemorrhage, mass effect, hydrocephalus or extra-axial fluid collection. No CT evidence of acute infarction. Osseous structures are intact. The visualized paranasal sinuses and mastoids are clear. No change. IMPRESSION: No acute intracranial CT findings. Dictated on workstation # [id number] Reviewed: Reviewed by Me (radiology report reviewed by me) Departure Communication (Admissions) Progress Notes Diagnostic findings discussed with the patient. Wound repair performed. Patient denies the need for pain medication at this time. Plan for discharge to home. All return precautions were discussed with the patient as described in the discharge instructions of this report. Patient verbalizes understanding and agrees with the treatment plan. Impression Impression: Primary Impression: Minor head injury without loss of consciousness Qualified Codes: S09.90XA - Unspecified injury of head, initial encounter Additional Impressions: Laceration of forehead Qualified Codes: S01.81XA - Laceration without foreign body of other part of head, initial encounter Fall from slipping on snow Qualified Codes: W00.9XXA - Unspecified fall due to ice and snow, initial encounter Disposition: HOME, SELF-CARE Condition: Improved Departure-Patient Inst. Decision time for Depature: 14:24 Referrals: BLESSING LOMELI MD (PCP/Family) Primary Care Physician Patient Instructions: Laceration Repair With Glue (DC), Minor Head Injury (DC) Add. Discharge Instructions: All discharge instructions reviewed with patient and/or family. Voiced understanding. Tylenol Extra Strength [id number] as directed for pain. Ibuprofen 800 mg by mouth every 8 hours as needed for pain or headache. Ice pack for 20 minute intervals as needed for pain. Tomorrow morning you may begin showering. Shower with antibacterial soap. Avoid scrubbing the laceration. No heavy lifting, pushing, pulling, twisting, bending, climbing 7 days after the headache resolves. Follow-up with your primary care provider for recheck as an outpatient if needed. Return to the emergency department for worsened symptoms, headache, dizziness, changes in vision, slurred speech, shortness of air, chest pain, seizure, vomiting, numbness, weakness, neck pain, back pain, redness, fever, drainage, or any other concerns. Work/School Note: Work Release Form Date Seen in the Emergency Department: Jun 01, 2017 Return to Work: Jun 04, 2017 Other Restrictions Listed Below: No heavy lifting/pushing/pulling/ twisting/bending/climbing x7d after JOHN CHRISTIANSEN Jun 01, 2017 13:07
--- NOTE | 2017-06-01 13:53 | Diagnostic Imaging Report ---
PROCEDURE: CT head without contrast. TECHNIQUE: Multiple contiguous axial images were obtained through the brain without the use of intravenous contrast. INDICATION: Fall. Head injury. COMPARISON: CT head without contrast 03/13/2017. FINDINGS: No intracranial hemorrhage, mass effect, hydrocephalus or extra-axial fluid collection. No CT evidence of acute infarction. Osseous structures are intact. The visualized paranasal sinuses and mastoids are clear. No change. IMPRESSION: No acute intracranial CT findings. Dictated by: Dictated on workstation # [id number]
[2017-06-01 14:51] VITALS: BP 124/84
== END 2017-06-01 14:54 | disposition home or self-care (01) ==
LOC: EDUNIT# 11:49 → ER 11:51
DX: S09.90XA Unspecified injury of head, initial encounter (principal); S01.81XA Laceration without foreign body of other part of head, initial encounter; J45.909 Unspecified asthma, uncomplicated; Z87.59 Personal history of other complications of pregnancy, childbirth and the puerperium; W00.9XXA Unspecified fall due to ice and snow, initial encounter
CPT/HCPCS: 70450; 84703; 99282

== ENCOUNTER 2017-10-05 11:47 | Emergency (ER) | payer MEDICAID ==
[~2017-10-05] VITALS: Ht 157.5 cm; Wt 72.6 kg
[2017-10-05 12:31] VITALS: BP 132/64
== END 2017-10-05 12:34 | disposition left against medical advice (07) ==
LOC: EDUNIT# 11:47 → ER 11:49
DX: R10.32 Left lower quadrant pain (principal); J45.909 Unspecified asthma, uncomplicated; Z87.59 Personal history of other complications of pregnancy, childbirth and the puerperium
CPT/HCPCS: 99281

== ENCOUNTER 2017-10-09 13:48 | Emergency (ER) | payer MEDICAID ==
[~2017-10-09] VITALS: Ht 157.5 cm; Wt 72.6 kg
--- NOTE | 2017-10-09 14:59 | ED GU-Female ---
General Chief Complaint: Abdominal/GI Problems Stated Complaint: ABD PAIN LT SIDE Nursing Triage Note: pt reports having abd cramping x 7-10 days; states has not improved; pt recently found out she was and has been taking control pills up until having positive test. pt reports she is concerned of miscarriage or ectopic due to taking bc pills while . unable to get in to pcp until 11/10 Nursing Sepsis Screen: No Definite Risk (LOULOU GUTIERREZ APRN) History of Present Illness Date Seen by Provider: October 09, 2017 Time Seen by Provider: 14:54 Initial Comments Patient is a 22-year-old female presents to the emergency room with complaints of left lower abdominal pelvic pain for one and a half weeks. she had previously been on control and ended up getting . Her last dose was on September 04, her menstrual cycle did not start at this time and she took a test which resulted in a positive. she was seen here last week for this but left AGAINST MEDICAL ADVICE before being evaluated after checking in. Timing/Duration: week Severity/Quality: mild Location: LLQ Radiation: vaginal Activities at Onset: none Prior Genitourinary Problems: none Sexual [place] History: single partner Associated Symptoms: denies symptoms (LOULOU GUTIERREZ APRN) Allergies and Home Medications Allergies Coded Allergies: Sulfa (Sulfonamide Antibiotics) (Unverified Allergy, Unknown, rash, ) sulfamethoxazole (Unverified Allergy, Unknown, rash, 05/10/14) trimethoprim (Unverified Allergy, Unknown, rash, 05/10/14) Home Medications Clotrimazole 45 Gm Cr, 45 GM VG HS Prescribed by: ES OSORIO on 07/07/15 173 Docusate Sodium 100 Mg Capsule, 100 MG PO BID Prescribed by: SILVESTRE BERTRAND on 07/16/15 1404 Hydrocodone Bit/Acetaminophen 1 Each Tablet, 1-2 TAB PO Q4H PRN for PAIN Prescribed by: SILVESTRE BERTRAND on 07/16/15 1404 Ibuprofen 600 Mg Tablet, 600 MG PO Q6H Prescribed by: SILVESTRE BERTRAND on 07/16/15 1404 Vit/Fe Fumarate/Fa 1 Each Tablet, 1 TAB PO DAILY, (Reported) Patient Home Medication List Home Medication List Reviewed: Yes (LOULOU GUTIERREZ APRN) Review of Systems Constitutional: see HPI; No chills, No diaphoresis, No fever EENTM: see HPI Respiratory: see HPI Cardiovascular: see HPI Gastrointestinal: see HPI : Yes LMP: Sep 04, 2017 Musculoskeletal: no symptoms reported Skin: no symptoms reported Psychiatric/Neurological: No Symptoms Reported Endocrine: No Symptoms Reported Hematologic/Lymphatic: No Symptoms Reported (LOULOU GUTIERREZ APRN) Past Zpgajlp-Bhhiiu-Kpbqrn Hx Past Med/Social Hx: Reviewed Nursing Past Med/Soc Hx (LOULOU GUTIERREZ APRN) Patient Social History Alcohol Use: Rarely Uses Recreational Drug Use: No Smoking Status: Never a Smoker Recent Foreign Travel: No Contact w/Someone Who Travel: No Recent Infectious Disease Expo: No Recent Hopitalizations: No Physical Abuse: No Sexual Abuse: No Mistreated: No Fear: No (LOULOU GUTIERREZ APRN) Immunizations Up To Date Tetanus Booster (TDap): Less than 5yrs PED Vaccines UTD: No Date of Influenza Vaccine: Feb 16, 2015 (LOULOU GUTIERREZ APRN) Seasonal Allergies Seasonal Allergies: No (LOULOU GUTIERREZ APRN) Past Medical History Surgeries: Yes (right hand tumor removed x 8) Section, Gallbladder Respiratory: Yes Asthma Cardiac: No Neurological: No : Yes Last Menstrual Period: Sep 04, 2017 Reproductive Disorders: No Genitourinary: No Gastrointestinal: No Musculoskeletal: No Endocrine: No HEENT: No Cancer: No Psychosocial: No Nursing Suicide Risk Score: 1 Integumentary: No Blood Disorders: No Adverse Reaction/Blood Tranf: No (LOULOU GUTIERREZ APRN) Family Medical History Reviewed Nursing Family Hx (LOULOU GUTIERREZ APRN) FH: cerebral palsy G8 BROTHER No Pertinent Family Hx (LOULOU GUTIERREZ APRN) Physical Exam Vital Signs Vital Signs - First Documented 10/09/17 14:35 Pulse 108 Resp 18 B/P (MAP) 112/81 (91) Pulse Ox 97 O2 Delivery Room Air (ADAM MEJÍA) Vital Signs Capillary Refill : Less Than 3 Seconds (LOULOU GUTIERREZ APRN) General Appearance: WD/WN, no apparent distress HEENT: PERRL/EOMI, normal ENT inspection, TMs normal, pharynx normal Neck: non-tender, full range of motion, supple, normal inspection Cardiovascular: regular rate, rhythm, no edema, no gallop, no JVD, no murmur Respiratory: chest non-tender, lungs clear, normal breath sounds, no respiratory distress, no accessory muscle use Gastrointestinal: normal bowel sounds, non tender, soft, no organomegaly, no pulsatile mass Back: normal inspection, no CVA tenderness, no vertebral tenderness Extremities: normal range of motion, non-tender, normal inspection, no pedal edema, no calf tenderness Neurologic/Psychiatric: detail supervisor II-XII nml as tested, no motor/sensory deficits, alert, normal mood/affect, oriented x 3 Skin: normal color, warm/dry Lymphatic: no adenopathy (LOULOU GUTIERREZ APRN) Progress/Results/Core Measures Suspected Sepsis Recent Fever Within 48 Hours: No Infection Criteria Present: None New/Unexplained Altered Menta: No Sepsis Screen: No Definite Risk SIRS Temperature: Pulse: 108 Respiratory Rate: 18 Laboratory Tests 10/09/17 16:12: White Blood Count 12.5H Blood Pressure 112 /81 Mean: 91 Laboratory Tests 10/09/17 16:12: Platelet Count 391 (LOULOU GUTIERREZ APRN) Results/Orders Lab Results Laboratory Tests Test 10/09/17 14:41 Range/Units (ADAM MEJÍA STUDENT) Vital Signs/I&O 10/09/17 14:35 Pulse 108 Resp 18 B/P (MAP) 112/81 (91) Pulse Ox 97 O2 Delivery Room Air (ADAM MEJÍA STUDENT) Vital Signs/I&O Capillary Refill : Less Than 3 Seconds (LOULOU GUTIERREZ APRN) Blood Pressure Mean: 91 Diagnostic Imaging Diagonstic Imaging: Ultrasound Comments NAME: KERLINE CARO REC#: [id number] PT STATUS: REG ER : 1995 PHYSICIAN: LOULOU GUTIERREZ APRN ADMIT DATE: 10/09/17/ER Draft Date of Exam:10/09/17 US OB<14 WKS SNGLE W/TRANSVAG INDICATION: Left pelvic pain x 1 week. FINDINGS: There is a tiny cystic structure within the endometrium which may represent a tiny gestational sac. The mean diameter is consistent with approximately 4 weeks and 6 days. No pole is seen at this time. No perigestational sac hemorrhage is detected. The left ovary was obscured by bowel gas. The right ovary does contain a slightly complex mass measuring 2.4 x 2.0 cm, suggestive of a hemorrhagic cyst. No significant free fluid is seen. IMPRESSION: Tiny cystic structure within the endometrium, suggestive of a very early gestational sac. No pole is seen at this time. A followup ultrasound and/or correlation with serial beta hCG levels could be performed to confirm viability. Dictated on workstation # [id number] Dict: 10/09/17 1536 Trans: 10/09/17 1558 [id number] Interpreted by: JOANNE SHELLEY MD Electronically signed by: (ADAM MEJÍA STUDENT) Departure Impression Primary Impression: left lower quadrant abdominal pain Disposition: HOME, SELF-CARE Condition: Stable Departure-Patient Inst. Decision time for Depature: 16:22 (LOULOU GUTIERREZ APRN) Referrals: BLESSING LOMELI MD (PCP/Family) Primary Care Physician Patient Instructions: NO INSTRUCTIONS GIVEN Add. Discharge Instructions: 1. Follow up with your doctor next week 2. All discharge instructions reviewed with patient and/or family. Voiced understanding. LOULOU GUTIERREZ APRN October 09, 2017 14:59 ADAM MEJÍA STUDENT October 09, 2017 16:01
[2017-10-09 15:53] LABS: BILIRUBIN,URINE NEGATIVE (NEGATIVE); CLARITY,URINE CLEAR; COLOR,URINE YELLOW; GLUCOSE, URINE (UA) NEGATIVE (NEGATIVE); KETONES,URINE NEGATIVE (NEGATIVE); LEUKOCYTE ESTERASE ,URINE NEGATIVE (NEGATIVE); NITRITE,URINE NEGATIVE (NEGATIVE); PH,URINE 5 (5-9); PROTEIN,URINE NEGATIVE (NEGATIVE); UROBILINOGEN,URINE NORMAL (NORMAL)
--- NOTE | 2017-10-09 15:58 | Diagnostic Imaging Report ---
INDICATION: Left pelvic pain x 1 week. FINDINGS: There is a tiny cystic structure within the endometrium which may represent a tiny gestational sac. The mean diameter is consistent with approximately 4 weeks and 6 days. No pole is seen at this time. No perigestational sac hemorrhage is detected. The left ovary was obscured by bowel gas. The right ovary does contain a slightly complex mass measuring 2.4 x 2.0 cm, suggestive of a hemorrhagic cyst. No significant free fluid is seen. IMPRESSION: Tiny cystic structure within the endometrium, suggestive of a very early gestational sac. No pole is seen at this time. A followup ultrasound and/or correlation with serial beta hCG levels could be performed to confirm viability. Dictated by: Dictated on workstation # [id number]
[2017-10-09 16:05] LABS: BACTERIA,URINE FEW /HPF; WBC,URINE 0-2 /HPF
[2017-10-09 16:20] LABS: BASOPHILS % (AUTO) 0 % (0-10); EOSINOPHILS # (AUTO) 0.1 10^3/uL (0.0-0.3); EOSINOPHILS % (AUTO) 1 % (0-10); HEMATOCRIT 42 % (35-52); HEMOGLOBIN 14.5 G/DL (11.5-16.0); LYMPHOCYTES # (AUTO) 3.7 X 10^3 (1.0-4.0); LYMPHOCYTES % (AUTO) 30 % (12-44); MEAN CORPUSCULAR HEMOGLOBIN 30 PG (25-34); MEAN CORPUSCULAR HGB CONC 35 G/DL (32-36); MEAN CORPUSCULAR VOLUME 85 FL (80-99); MEAN PLATELET VOLUME 9.9 FL (7.4-10.4); MONOCYTES # (AUTO) 0.7 X 10^3 (0.0-1.0); MONOCYTES % (AUTO) 6 % (0-12); NEUTROPHILS # (AUTO) 7.9 X 10^3 (1.8-7.8); NEUTROPHILS % (AUTO) 64 % (42-75); PLATELET COUNT 391 10^3/uL (130-400); RED BLOOD COUNT 4.91 10^6/uL (4.35-5.85); RED CELL DISTRIBUTION WIDTH 12.7 % (10.0-14.5); WHITE BLOOD COUNT 12.5 10^3/uL (4.3-11.0)
[2017-10-09 16:35] VITALS: BP 112/81
[2017-10-09 16:39] LABS: ALANINE AMINOTRANSFERASE 13 U/L (0-55); ALBUMIN 4.6 GM/DL (3.2-4.5); ALKALINE PHOSPHATASE 54 U/L (40-136); BILIRUBIN,TOTAL 0.6 MG/DL (0.1-1.0); BUN/CREATININE RATIO 7; CALCIUM 9.7 MG/DL (8.5-10.1); CARBON DIOXIDE 18 MMOL/L (21-32); CHLORIDE 108 MMOL/L (98-107); CREATININE SERUM 0.89 MG/DL (0.60-1.30); GFR ESTIMATED > 60; GLUCOSE 81 MG/DL (70-105); SODIUM 139 MMOL/L (135-145); TOTAL PROTEIN 8.1 GM/DL (6.4-8.2)
== END 2017-10-09 16:38 | disposition home or self-care (01) ==
LOC: EDUNIT# 13:48 → ER 13:50
DX: R10.32 Left lower quadrant pain (principal); J45.909 Unspecified asthma, uncomplicated; Z88.2 Allergy status to sulfonamides; Z88.8 Allergy status to other drugs, medicaments and biological substances; Z87.59 Personal history of other complications of pregnancy, childbirth and the puerperium
CPT/HCPCS: 36415; 76801; 76817; 80053; 81000; 84702; 85025

== ENCOUNTER → 2017-11-20 | Outpatient (CLI) | payer MEDICAID ==
--- NOTE | 2017-11-20 13:58 | Diagnostic Imaging Report ---
PROCEDURE: US OB SINGLE FETUS <14 WKS. TECHNIQUE: Multiple real-time grayscale images were obtained over the gravid uterus in various projections. INDICATION: . Dating. COMPARISON: None. FINDINGS: There is a single live intrauterine gestation demonstrated. The crown-rump length measures approximately 4.3 cm corresponding to an estimated gestational age of 11 weeks 2 days. cardiac activity is detected with a heart rate of 160 beats per minute. Neither ovary is demonstrated. There is no free fluid. IMPRESSION: Single live intrauterine gestation dated 11 weeks 2 days based on today's ultrasound yielding an BRANDON of 06/09/2018. No acute abnormalities demonstrated. Dictated by: Dictated on workstation # [id number]
== END ==
LOC: RAD 13:19
PROVIDERS: ATTEND Family Medicine
DX: Z34.81 Encounter for supervision of other normal pregnancy, first trimester (principal); Z3A.11 11 weeks gestation of pregnancy
CPT/HCPCS: 76801

== ENCOUNTER → 2018-01-27 | Outpatient (CLI) | payer MEDICAID ==
[~2018-01-27] MED LIST changes: +AMOX500C2 PO; +FLUC150T PO
--- NOTE | 2018-01-27 13:37 | Diagnostic Imaging Report ---
INDICATION: survey. TECHNIQUE: Multiple real-time grayscale images were obtained over the gravid uterus. COMPARISON: 11/20/2017. FINDINGS: There is a single live fetus in a cephalic presentation. heart rate was recorded at 142 beats per minute. Placenta is posterior. Amniotic fluid volume is normal. survey demonstrates kidneys, bladder and stomach to be unremarkable. brain is unremarkable. There is a four-chamber heart. There is a three-vessel cord with normal insertion. The spine is unremarkable. Biometrical measurements are as follows: Biparietal 4.7 cm, age 20 weeks 2 days. Head circumference 18.6 cm, age 21 weeks 0 days. Abdominal circumference 14.8 cm, age 20 weeks 1 days. Femur length 3.6 cm, age 21 weeks 4 days. Sonographic estimate age: 20 weeks 6 days. Sonographic estimated date of delivery: 06/10/18. Estimated Weight: 374 gm (+/- 55 gm). LMP percentile: 31%. heart rate: 142 beats per minute. number: 1 of 1. IMPRESSION: Single live IUP approximately 21 weeks gestational age demonstrating normal interval growth when compared with prior exam. Dictated by: Dictated on workstation # [id number]
== END ==
LOC: RAD 11:32
PROVIDERS: ATTEND Family Medicine
DX: Z36.89 Encounter for other specified antenatal screening (principal); Z3A.21 21 weeks gestation of pregnancy
CPT/HCPCS: 76805

== ENCOUNTER 2018-02-17 13:53 | Outpatient (CLI) | payer MEDICAID ==
[~2018-02-17] VITALS: Ht 157.5 cm; Wt 79.4 kg
[~2018-02-17 13:53] MED LIST changes: -AMOX500C2 PO; -FLUC150T PO
[2018-02-17 14:05] VITALS: BP 115/58
[2018-02-17 14:40] VITALS: BP 104/56
[2018-02-17 15:10] VITALS: BP 98/56
[2018-02-17] MEDS ORDERED: FLU QUADRIvalent (5+ YOA) 2018-2019 (AFLURIA) 0.5 ML IM ONE (15:15)
[2018-02-17] MEDS ORDERED: AMOX500C2 PO (15:17)
[2018-02-17] MEDS ORDERED: FLUC150T PO (15:21)
== END 2018-02-17 15:30 | disposition home or self-care (01) ==
LOC: WSo 13:53 → LDRP 13:57 → WSo 15:30
PROVIDERS: ATTEND Family Medicine
DX: O26.892 Other specified pregnancy related conditions, second trimester (principal); N89.8 Other specified noninflammatory disorders of vagina; Z3A.24 24 weeks gestation of pregnancy
CPT/HCPCS: 99213

== ENCOUNTER 2018-02-23 12:39 | Emergency (ER) | payer MEDICAID ==
[~2018-02-23] VITALS: Ht 157.5 cm; Wt 79.8 kg
[~2018-02-23 12:39] MED LIST changes: +AMOX500C2 PO; +FLUC150T PO
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
[2018-02-23] MEDS ORDERED: ONDANSETRON 4 MG (ZOFRAN) ORAL DISSOLVE TAB PO ONE (13:15)
[2018-02-23 13:48] VITALS: BP 122/76
== END 2018-02-23 13:48 | disposition home or self-care (01) ==
LOC: ER 12:39 → EDUNIT# 12:39 → EEVIPCON 12:39 → ER 13:48
DX: O9A.213 Injury, poisoning and certain other consequences of external causes complicating pregnancy, third trimester (principal); S06.0X0A Concussion without loss of consciousness, initial encounter; S01.01XA Laceration without foreign body of scalp, initial encounter; O99.513 Diseases of the respiratory system complicating pregnancy, third trimester; J45.909 Unspecified asthma, uncomplicated; R40.2142 Coma scale, eyes open, spontaneous, at arrival to emergency department; R40.2252 Coma scale, best verbal response, oriented, at arrival to emergency department; R40.2362 Coma scale, best motor response, obeys commands, at arrival to emergency department; Z88.2 Allergy status to sulfonamides; Z88.8 Allergy status to other drugs, medicaments and biological substances; Z87.891 Personal history of nicotine dependence; Z98.890 Other specified postprocedural states; Z3A.00 Weeks of gestation of pregnancy not specified
CPT/HCPCS: 12001

== ENCOUNTER 2018-03-06 19:53 | Emergency (ER) | payer MEDICAID ==
[~2018-03-06] VITALS: Ht 157.5 cm; Wt 79.4 kg
[2018-03-06 20:29] VITALS: BP 123/75
== END 2018-03-06 20:29 | disposition home or self-care (01) ==
LOC: ER 19:53 → EDUNIT# 19:53 → ER 20:29
DX: S01.81XD Laceration without foreign body of other part of head, subsequent encounter (principal); X58.XXXD Exposure to other specified factors, subsequent encounter

== ENCOUNTER 2018-05-11 12:18 | Outpatient (CLI) | payer MEDICAID ==
[~2018-05-11] VITALS: Ht 157.5 cm; Wt 85.8 kg
--- NOTE | 2018-05-11 12:25 | NUR ---
KERLINE CARO presented to unit via AMBULATORY from ED, with c/o VOMITING. KERLINE CARO weighed, gowned, voided, and to bed. EFHM and TOCO applied, VS taken. KERLINE CARO oriented to bed controls, call light, TV, heat, and A/C controls.
[2018-05-11 12:44] LABS: BILIRUBIN,URINE NEGATIVE (NEGATIVE); CLARITY,URINE SLIGHTLY CLOUDY; COLOR,URINE YELLOW; GLUCOSE, URINE (UA) NEGATIVE (NEGATIVE); KETONES,URINE 1+ (NEGATIVE); LEUKOCYTE ESTERASE ,URINE 1+ (NEGATIVE); NITRITE,URINE NEGATIVE (NEGATIVE); PH,URINE 7 (5-9); PROTEIN,URINE 2+ (NEGATIVE); UROBILINOGEN,URINE 1 MG/DL (NORMAL)
[2018-05-11 12:45] VITALS: BP 98/62
[2018-05-11 12:52] LABS: BACTERIA,URINE TRACE /HPF; RBC,URINE RARE /HPF; WBC,URINE 0-2 /HPF
--- NOTE | 2018-05-11 13:00 | NUR ---
DR. SAXENA NOTIFIED OF PT'S ARRIVAL, , 35-6/[address], DR LOMELI'S PT, C/O VOMITTING SINCE 04/27 AND HAS BEEN TOLD BY PROVIDERS X2 TO GO TO THE HOSPITAL FOR IV FLUIDS BUT HASN'T BEEN ABLE TO/WANT TO UNTIL TODAY, UA RESULTS. NEW ORDERS RECEIVED. Addendum: 05/11/18 at 1512 by INGA IVY RN ALSO REVIEWED STRIP.
[2018-05-11] MEDS ORDERED: LACTATED RINGERS 1,000 ML IV ONE (13:04)
[2018-05-11 13:14] LABS: AMPHETAMINE SCREEN, URINE NEGATIVE (NEGATIVE); BARBITURATE SCREEN URINE NEGATIVE (NEGATIVE); BENZODIAZEPINES SCREEN URINE NEGATIVE (NEGATIVE); CANNABINOID SCREEN, URINE NEGATIVE (NEGATIVE); COCAINE SCREEN URINE NEGATIVE (NEGATIVE); METHADONE STAT NEGATIVE (NEGATIVE); METHAMPHETAMINE SCREEN URINE S NEGATIVE (NEGATIVE); OPIATE SCREEN URINE NEGATIVE (NEGATIVE); OXYCODONE STAT NEGATIVE (NEGATIVE); PROPOXYPHENE STAT NEGATIVE (NEGATIVE); TRICYCLIC ANTIDEPRESSANTS SCRE NEGATIVE (NEGATIVE)
[2018-05-11] MEDS ORDERED: LACTATED RINGERS 1,000 ML IV SCH (13:15)
[2018-05-11] MEDS ORDERED: FLU QUADRIvalent (5+ YOA) 2018-2019 (AFLURIA) 0.5 ML IM ONE (13:15)
[2018-05-11 14:15] VITALS: BP 104/66
--- NOTE | 2018-05-11 14:45 | NUR ---
REFER TO LABOR FLOW SHEET.
--- NOTE | 2018-05-11 14:50 | NUR ---
DISCHARGE PAPERS PROVIDED AND REVIEWED WITH PT, PT VERBALIZES UNDERSTANDING AND DENIES ANY QUESTIONS AT THIS TIME. PT HAS A SCHEDULED APPOINTMENT ON THE . PAPER SIGNED.
--- NOTE | 2018-05-11 14:52 | NUR ---
PT DISCHARGED FROM [facility] TO [facility] VIA AMBULATORY IN STABLE CONDITION.
--- NOTE | 2018-05-14 12:34 | Physician Query-Final Dx ---
TEDDY SIMEON 05/14/18 1234: Clinic Account Progress/Dx Physician Query: Please give a diagnosis and include the weeks of gestation if known thank you Date of Service May 11, 2018 at 12:18 CAIN SAXENA MD 05/18/18 0758: Clinic Account Progress/Dx DIAGNOSIS: Diagnosis 1. IUP at 35w5d gestation, non-labor 2. Nausea and vomiting, with mild dehydration TEDDY SIMEON May 14, 2018 12:34 CAIN SAXENA MD May 18, 2018 07:58
== END 2018-05-11 14:52 | disposition home or self-care (01) ==
LOC: WSo 12:18 → LDRP 12:18 → WSo 14:52
PROVIDERS: ATTEND Family Medicine
DX: O21.2 Late vomiting of pregnancy (principal); O99.283 Endocrine, nutritional and metabolic diseases complicating pregnancy, third trimester; E86.0 Dehydration; Z3A.35 35 weeks gestation of pregnancy
CPT/HCPCS: 80306; 81000; 96360; 99213

== ENCOUNTER 2018-05-22 20:02 | Outpatient (CLI) | payer MEDICAID ==
[~2018-05-22] VITALS: Ht 157.5 cm; Wt 86.8 kg
--- NOTE | 2018-05-22 20:10 | NUR ---
KERLINE CARO presented to unit via from ED, with c/o BACK PAIN. KERLINE CARO weighed, gowned, voided, and to bed. EFHM and TOCO applied, VS taken. KERLINE CARO oriented to bed controls, call light, TV, heat, and A/C controls.
[2018-05-22 20:20] VITALS: BP 136/64
[2018-05-22 20:38] LABS: BILIRUBIN,URINE NEGATIVE (NEGATIVE); CLARITY,URINE CLEAR; COLOR,URINE YELLOW; GLUCOSE, URINE (UA) NEGATIVE (NEGATIVE); KETONES,URINE NEGATIVE (NEGATIVE); LEUKOCYTE ESTERASE ,URINE NEGATIVE (NEGATIVE); NITRITE,URINE NEGATIVE (NEGATIVE); PH,URINE 6.5 (5-9); PROTEIN,URINE NEGATIVE (NEGATIVE); UROBILINOGEN,URINE NORMAL (NORMAL)
[2018-05-22 20:50] LABS: SQUAMOUS EPITHELIAL CELL,UR RARE /HPF
[2018-05-22 21:10] VITALS: BP 110/69
--- NOTE | 2018-05-22 21:10 | NUR ---
EFM D/C AND PT ALLOWED TO DRESS.
--- NOTE | 2018-05-22 21:20 | NUR ---
DISCHARGE INSTRUCTIONS GIVEN. PT VERBALIZES UNDERSTANDING AND SIGNATURE OBTAINED. PT D/C TO PRIVATE VEHICLE IN STABLE CONDITION.
== END 2018-05-22 21:20 | disposition home or self-care (01) ==
LOC: WSo 20:02 → LDRP 20:02 → WSo 21:20
PROVIDERS: ATTEND Family Medicine
DX: O99.89 Other specified diseases and conditions complicating pregnancy, childbirth and the puerperium (principal); M54.9 Dorsalgia, unspecified
CPT/HCPCS: 81000; 99213

== ENCOUNTER 2018-06-01 07:43 | Outpatient (CLI) | payer MEDICAID ==
[~2018-06-01] VITALS: Ht 157.5 cm; Wt 85.8 kg
[2018-06-01] MEDS ORDERED: PREN1TAB79 PO (08:14)
[2018-06-01 08:23] VITALS: BP 112/72
== END 2018-06-01 11:28 | disposition home or self-care (01) ==
LOC: PREOP 07:43
PROVIDERS: ATTEND Obstetrics & Gynecology
DX: Z01.818 Encounter for other preprocedural examination (principal)
CPT/HCPCS: 87081

== ENCOUNTER 2018-06-04 06:50 | Inpatient (IN) | payer MEDICAID | END 2018-06-06 13:30 | disposition home or self-care (01) | LOC: LDRP 06:50 ==

== ENCOUNTER 2019-03-29 12:01 | Emergency (ER) | payer MEDICAID ==
[~2019-03-29] VITALS: Ht 157 cm; Wt 79.5 kg
[~2019-03-29 12:01] MED LIST changes: +IBUP-844 PO; +PREN1TAB79 PO
[2019-03-29] MEDS ORDERED: LACTATED RINGERS 1,000 ML IV ONE ×2 (12:38→13:47)
[2019-03-29] MEDS ORDERED: ONDANSETRON 4 MG/2 ML (SDV) Z0FRAN IVP ONE (12:45)
[2019-03-29 13:24] LABS: BASOPHILS % (AUTO) 0 % (0-10); EOSINOPHILS % (AUTO) 0 % (0-10); HEMATOCRIT 44 % (35-52); LYMPHOCYTES # (AUTO) 1.4 X 10^3 (1.0-4.0); LYMPHOCYTES % (AUTO) 8 % (12-44); MEAN CORPUSCULAR HEMOGLOBIN 28 PG (25-34); MEAN CORPUSCULAR HGB CONC 34 G/DL (32-36); MEAN CORPUSCULAR VOLUME 83 FL (80-99); MEAN PLATELET VOLUME 9.7 FL (7.4-10.4); MONOCYTES # (AUTO) 1.5 X 10^3 (0.0-1.0); MONOCYTES % (AUTO) 8 % (0-12); NEUTROPHILS # (AUTO) 15.5 X 10^3 (1.8-7.8); NEUTROPHILS % (AUTO) 84 % (42-75); PLATELET COUNT 416 10^3/uL (130-400); RED CELL DISTRIBUTION WIDTH 13.3 % (10.0-14.5); WHITE BLOOD COUNT 18.5 10^3/uL (4.3-11.0)
--- NOTE | 2019-03-29 13:26 | ED GI ---
General Chief Complaint: Abdominal/GI Problems Stated Complaint: N/V/D Nursing Triage Note: Pt c/o n/v/d since this morning. Reports she has vomited 10-15x. Sepsis Screen: Possible Severe Sepsis Risk Source of Information: Patient History of Present Illness Date Seen by Provider: Mar 29, 2019 Time Seen by Provider: 12:38 Initial Comments PT ARRIVES VIA POV FROM HOME C/O NAUSEA/VOMITING/DIARRHEA SINCE WAKING AT 0900 THIS AM HAS VOMITED X 7-8-NO HEMATEMESIS OR COFFEE GROUND EMESIS HAS HAD DIARRHEA X 15. NO BLACK/BLOODY/TARRY STOOLS C/O EPIGASTRIC PAIN NO FEVER HAS VOIDED X 1 TODAY NO SICK CONTACTS OR SUSPICIOUS FOODS--3 KIDS AND BOYFRIEND ALL LIVE IN THE HOME ( OTHER SON LIVES WITH DAD IN , CHILD REQUIRES DAILY P.T. AT [employer] DUE TO CEREBRAL PALSY) FELT FINE WHEN SHE WENT TO BED LMP--NOW. HAD DEPO-PROVERA SHOT 2 MONTHS AGO AND HAS BEEN BLEEDING SINCE PCP: PENELOPE. DR. LOMELI--HAD ROUTINE EXAM 1 MONTH AGO. Allergies and Home Medications Allergies Coded Allergies: Sulfa (Sulfonamide Antibiotics) (Unverified Allergy, Mild, HIVES, 06/01/18) sulfamethoxazole (Unverified Allergy, Mild, HIVES, 06/01/18) trimethoprim (Unverified Allergy, Mild, HIVES, 06/01/18) Home Medications Docusate Sodium 100 Mg Capsule, 100 MG PO BID Prescribed by: EDILSON HUBBARD on 06/04/18 0957 Hydrocodone Bit/Acetaminophen 1 Tab Tab, 1-2 TAB PO Q4H PRN for PAIN-MODERATE Prescribed by: EDILSON HUBBARD on 06/04/18 0957 Hyoscyamine Sulfate 0.125 Mg Tab.subl, 1-2 TAB SL Q4H Prescribed by: ELLEN SIMPSON on 03/29/19 1443 Ibuprofen 600 Mg Tablet, 600 MG PO Q6H Prescribed by: EDILSON HUBBARD on 06/04/18 0957 Ondansetron 4 Mg Tab.rapdis, 4 MG PO Q4H Prescribed by: ELLEN SIMPSON on 03/29/19 1443 Vit W-Ca,Fe,FA(<1 mg) 1 Each Tablet, 1 EACH PO DAILY, (Reported) Patient Home Medication List Home Medication List Reviewed: Yes Review of Systems Review of Systems Constitutional: no symptoms reported Respiratory: No Symptoms Reported Cardiovascular: No Symptoms Reported Gastrointestinal: See HPI, Abdominal Pain, Diarrhea, Nausea, Poor Appetite, Poor Fluid Intake, Vomiting Genitourinary: No Symptoms Reported Musculoskeletal: no symptoms reported Skin: no symptoms reported Psychiatric/Neurological: No Symptoms Reported Endocrine: No Symptoms Reported Hematologic/Lymphatic: No Symptoms Reported Past Wozqicg-Jrxfal-Krhksf Hx Patient Social History Alcohol Use: Denies Use Recreational Drug Use: No Smoking Status: Never a Smoker Recent Foreign Travel: No Contact w/Someone Who Travel: No Recent Infectious Disease Expo: No Recent Hopitalizations: No Immunizations Up To Date Tetanus Booster (TDap): Less than 5yrs PED Vaccines UTD: No Date of Influenza Vaccine: Feb 16, 2015 Seasonal Allergies Seasonal Allergies: No Past Medical History Surgeries: Yes (BENIGN TUMOR REMOVED FROM LEFT HAND X 9; X 4; UMBILICAL HERNIA REPAIR; ) Appendectomy, Section, Gallbladder Respiratory: Yes (HASN'T HAD ISSUES FOR YEARS BUT HAS DURING LAST ) Asthma Cardiac: No Neurological: No : No Hx : 4 Hx Para: 4 (ONE CHILD LIVES WITH DAD IN , CHILD NEEDS DAILY P.T. AT [employer] DUE TO CEREBRAL PALSY) Hx Total # of Abortions (Sp): 0 Reproductive Disorders: No Female Reproductive Disorders: Denies Sexually Transmitted Disease: No HIV/AIDS: No Genitourinary: No Gastrointestinal: Yes (S/P MERLIN, APPY, UMBILICAL HERNIA REPAIR) Abdominal Hernia, Gastroesophageal Reflux, Gall Bladder Disease Musculoskeletal: Yes (BENIGN TUMOR LEFT HAND--9 SURGERIES) Endocrine: No HEENT: Yes (GLASSES) Loss of Vision: Bilateral Hearing Impairment: Denies Cancer: No Psychosocial: Yes (HX DEPRESSION) Integumentary: Yes (BENIGN TUMOR LEFT HAND--SURGERY X 9) Eczema Blood Disorders: No Adverse Reaction/Blood Tranf: No (N/A) Family Medical History FH: cerebral palsy G8 BROTHER No Pertinent Family Hx Physical Exam Vital Signs Vital Signs - First Documented 03/29/19 12:15 Temp 36.4 Pulse 101 Resp 22 B/P (MAP) 117/82 (94) Pulse Ox 97 O2 Delivery Room Air Capillary Refill : Less Than 3 Seconds Height/Weight/BMI Height: 5'2.00" Weight: 187lbs. 8.0oz. 85.956331ic; 32.00 BMI Method:Stated General Appearance: WD/WN, no apparent distress, other (DOES NOT APPEAR ILL OR TO BE IN ANY DISCOMFORT OR DISTRESS) HEENT: PERRL/EOMI, other (ORAL MUCOSA MOIST) Respiratory: normal breath sounds, no respiratory distress, no accessory muscle use Cardiovascular: regular rate, rhythm, no murmur Gastrointestinal: normal bowel sounds, soft, no organomegaly, tenderness (MILD EPIGASTRIC TENDERNESS) Extremities: normal inspection Back: normal inspection, no CVA tenderness Neurologic/Psychiatric: rug shampooer II-XII nml as tested, no motor/sensory deficits, alert, normal mood/affect, oriented x 3 Skin: normal color (PT IS BLACK), warm/dry Progress/Results/Core Measures Results/Orders Lab Results Laboratory Tests Test 03/29/19 13:15 03/29/19 14:45 Range/Units White Blood Count 18.5 H 4.3-11.0 10^3/uL Red Blood Count 5.32 4.35-5.85 10^6/uL Hemoglobin 15.0 11.5-16.0 G/DL Hematocrit 44 35-52 % Mean Corpuscular Volume 83 80-99 FL Mean Corpuscular Hemoglobin 28 25-34 PG Mean Corpuscular Hemoglobin Concent 34 32-36 G/DL Red Cell Distribution Width 13.3 10.0-14.5 % Platelet Count 416 H 130-400 10^3/uL Mean Platelet Volume 9.7 7.4-10.4 FL Neutrophils (%) (Auto) 84 H 42-75 % Lymphocytes (%) (Auto) 8 L 12-44 % Monocytes (%) (Auto) 8 0-12 % Eosinophils (%) (Auto) 0 0-10 % Basophils (%) (Auto) 0 0-10 % Neutrophils # (Auto) 15.5 H 1.8-7.8 X 10^3 Lymphocytes # (Auto) 1.4 1.0-4.0 X 10^3 Monocytes # (Auto) 1.5 H 0.0-1.0 X 10^3 Eosinophils # (Auto) 0.0 0.0-0.3 10^3/uL Basophils # (Auto) 0.0 0.0-0.1 10^3/uL Neutrophils % (Manual) 67 % Lymphocytes % (Manual) 9 % Monocytes % (Manual) 5 % Eosinophils % (Manual) 0 % Basophils % (Manual) 0 % Band Neutrophils 19 % Blood Morphology Comment NORMAL Sodium Level 140 135-145 MMOL/L Potassium Level 4.2 3.6-5.0 MMOL/L Chloride Level 110 H 98-107 MMOL/L Carbon Dioxide Level 19 L 21-32 MMOL/L Anion Gap 11 5-14 MMOL/L Blood Urea Nitrogen 11 7-18 MG/DL Creatinine 1.01 0.60-1.30 MG/DL Estimat Glomerular Filtration Rate > 60 BUN/Creatinine Ratio 11 Glucose Level 132 H 70-105 MG/DL Calcium Level 9.8 8.5-10.1 MG/DL Corrected Calcium 8.5-10.1 MG/DL Magnesium Level 2.0 1.6-2.4 MG/DL Total Bilirubin 0.4 0.1-1.0 MG/DL Aspartate Amino Transf (AST/SGOT) 17 5-34 U/L Alanine Aminotransferase (ALT/SGPT) 20 0-55 U/L Alkaline Phosphatase 64 40-136 U/L Total Protein 8.5 H 6.4-8.2 GM/DL Albumin 4.9 H 3.2-4.5 GM/DL Amylase Level 113 25-125 U/L Lipase 17 8-78 U/L Serum Test, Qualitative NEGATIVE NEGATIVE Urine Color YELLOW Urine Clarity CLEAR Urine pH 5.5 5-9 Urine Specific [place] 1.025 H 1.016-1.022 Urine Protein NEGATIVE NEGATIVE Urine Glucose (UA) NEGATIVE NEGATIVE Urine Ketones NEGATIVE NEGATIVE Urine Nitrite NEGATIVE NEGATIVE Urine Bilirubin NEGATIVE NEGATIVE Urine Urobilinogen 0.2 < = 1.0 MG/DL Urine Leukocyte Esterase NEGATIVE NEGATIVE Urine RBC (Auto) TRACE-I NEGATIVE Urine RBC RARE /HPF Urine WBC RARE /HPF Urine Squamous Epithelial Cells 2-5 /HPF Urine Crystals NONE /LPF Urine Bacteria TRACE /HPF Urine Casts NONE /LPF Urine Mucus MODERATE H /LPF Urine Culture Indicated NO My Orders Orders - ELLEN SIMPSON DO Ed Iv/Invasive Line Start (03/29/19 12:38) Monitor-Rhythm Ecg Trace Only (03/29/19 12:38) Amylase (03/29/19 12:38) Cbc With Automated Diff (03/29/19 12:38) Comprehensive Metabolic Panel (03/29/19 12:38) Hcg,Qualitative Serum (03/29/19 12:38) Lipase (03/29/19 12:38) Magnesium (03/29/19 12:38) Ua Culture If Indicated (03/29/19 12:38) Ondansetron Injection (Zofran Injectio (03/29/19 12:45) Ed Iv/Invasive Line Start (03/29/19 12:38) Lactated Ringers (Lr 1000 Ml Iv Solution (03/29/19 12:38) Manual Differential (03/29/19 13:15) Acute Abd Series (03/29/19 13:47) Ed Iv/Invasive Line Start (03/29/19 13:47) Lactated Ringers (Lr 1000 Ml Iv Solution (03/29/19 13:47) Hyoscyamine Sl Tablet (Levsin Sl Tablet) (03/29/19 14:00) Medications Given in ED Current Medications Medications Dose Ordered Sig/Placido Route Start Time Stop Time Status Last Admin Dose Admin Hyoscyamine Sulfate 0.25 mg ONCE ONCE SL 03/29/19 14:00 03/29/19 14:01 DC 03/29/19 14:20 0.25 MG Lactated Ringer's 1,000 ml @ 0 mls/hr Q0M ONCE IV 03/29/19 12:38 03/29/19 12:40 DC 03/29/19 12:57 999 MLS/HR Lactated Ringer's 1,000 ml @ 0 mls/hr Q0M ONCE IV 03/29/19 13:47 03/29/19 13:49 DC 03/29/19 14:20 1,000 MLS/HR Ondansetron HCl 4 mg ONCE ONCE IVP 03/29/19 12:45 03/29/19 12:46 DC 03/29/19 12:56 4 MG Vital Signs/I&O 03/29/19 12:15 Temp 36.4 Pulse 101 Resp 22 B/P (MAP) 117/82 (94) Pulse Ox 97 O2 Delivery Room Air Blood Pressure Mean: 94 POS Progress Progress Note : Progress Note NO VOMITING OR DIARRHEA DURING ER STAY PT TOLERATING WATER PRIOR TO DISMISSAL PT FEELS MUCH BETTER AT DISMISSAL--NAUSEA AND PAIN ARE GONE Diagnostic Imaging Comments ACUTE ABDOMEN XRAYS--NO ACUTE PROCESS, PER RADIOLOGIST REPORT Departure Impression Primary Impression: Gastroenteritis Disposition: HOME, SELF-CARE Condition: Improved Departure-Patient Inst. Referrals: BLESSING LOMELI MD (PCP/Family) Primary Care Physician Patient Instructions: [id number] Add. Discharge Instructions: CLEAR LIQUIDS--WATER, BROTH, JELLO, GATORADE WHEN YOUR NAUSEA AND PAIN ARE GONE, ADD BRATS DIET TO CLEAR LIQUIDS--BANANAS, RICE, APPLESAUCE, TOAST, SALTINES FOLLOW UP WITH YOUR DR IN 2-3 DAYS IF NO BETTER All discharge instructions reviewed with patient and/or family. Voiced understanding. Scripts Hyoscyamine Sulfate (Levsin-Sl) 0.125 Mg Tab.subl 1-2 TAB SL Q4H for Abdominal Pain, #10 TAB Prov: ELLEN SIMPSON DO 03/29/19 Ondansetron (Ondansetron Odt) 4 Mg Tab.rapdis 4 MG PO Q4H for Nausea/Vomiting, #10 TAB Prov: ELLEN SIMPSON DO 03/29/19 ELLEN SIMPSON DO Mar 29, 2019 13:26 POS
[2019-03-29 13:42] LABS: BUN/CREATININE RATIO 11; CARBON DIOXIDE 19 MMOL/L (21-32); CHLORIDE 110 MMOL/L (98-107); CREATININE SERUM 1.01 MG/DL (0.60-1.30); POTASSIUM 4.2 MMOL/L (3.6-5.0); SODIUM 140 MMOL/L (135-145)
[2019-03-29 13:43] LABS: ALANINE AMINOTRANSFERASE 20 U/L (0-55); ALBUMIN 4.9 GM/DL (3.2-4.5); ALKALINE PHOSPHATASE 64 U/L (40-136); AMYLASE 113 U/L (25-125); BILIRUBIN,TOTAL 0.4 MG/DL (0.1-1.0); CALCIUM 9.8 MG/DL (8.5-10.1); GFR ESTIMATED > 60; GLUCOSE 132 MG/DL (70-105); LIPASE 17 U/L (8-78); TOTAL PROTEIN 8.5 GM/DL (6.4-8.2)
[2019-03-29 13:59] LABS: BAND NEUTROPHILS 19 %; BASOPHILS % (MANUAL) 0 %; EOSINOPHILS % (MANUAL) 0 %; LYMPHOCYTES % (MANUAL) 9 %; MONOCYTES % (MANUAL) 5 %; NEUTROPHILS % (MANUAL) 67 %; RBC MORPH NORMAL
[2019-03-29] MEDS ORDERED: HYOSCYAMINE 0.125 MG (LEVSIN) TAB SL ONE (14:00)
--- NOTE | 2019-03-29 14:24 | Diagnostic Imaging Report ---
Indication: Abdominal pain and vomiting PA chest, supine and upright abdominal images were obtained The gallbladder appears to be surgically absent. Bowel gas pattern is normal. There are no pathologic masses or calcifications. There is no intraperitoneal free air. IMPRESSION: No acute abnormalities in the abdomen Dictated by: Dictated on workstation # [id number]
[2019-03-29] MEDS ORDERED: HYOS0.1283 SL (14:43)
[2019-03-29] MEDS ORDERED: ONDA4TAB11 PO (14:43)
[2019-03-29 14:55] LABS: BILIRUBIN,URINE NEGATIVE (NEGATIVE); CLARITY,URINE CLEAR; COLOR,URINE YELLOW; GLUCOSE, URINE (UA) NEGATIVE (NEGATIVE); KETONES,URINE NEGATIVE (NEGATIVE); LEUKOCYTE ESTERASE ,URINE NEGATIVE (NEGATIVE); NITRITE,URINE NEGATIVE (NEGATIVE); PH,URINE 5.5 (5-9); PROTEIN,URINE NEGATIVE (NEGATIVE)
[2019-03-29 15:03] LABS: BACTERIA,URINE TRACE /HPF; RBC,URINE RARE /HPF; WBC,URINE RARE /HPF
[2019-03-29 15:25] VITALS: BP 114/70
== END 2019-03-29 15:25 | disposition home or self-care (01) ==
LOC: EDUNIT# 12:01 → ER 12:01
DX: K52.9 Noninfective gastroenteritis and colitis, unspecified (principal); J45.909 Unspecified asthma, uncomplicated; K21.9 Gastro-esophageal reflux disease without esophagitis; F53.0 Postpartum depression; Z88.2 Allergy status to sulfonamides; Z88.1 Allergy status to other antibiotic agents; Z90.49 Acquired absence of other specified parts of digestive tract
CPT/HCPCS: 36415; 74022; 80053; 81000; 82150; 83690; 83735; 84703; 85007; 85027; 93041

== ENCOUNTER 2021-04-15 17:55 | Emergency (ER) | payer MEDICAID ==
[~2021-04-15] VITALS: Ht 157.5 cm; Wt 76.2 kg
[~2021-04-15 17:55] MED LIST changes: +CLOT45CR28 VG; -CLTR1PV45 VG; +HYOS0.1283 SL; +ONDA4TAB11 PO
[2021-04-15] MEDS ORDERED: NAPR500T8 PO (18:21)
[2021-04-15] MEDS ORDERED: LIDO20SO23 MM (18:21)
[2021-04-15] MEDS ORDERED: AMOX-358 PO (18:21)
--- NOTE | 2021-04-15 18:21 | ED EENT ---
History of Present Illness General Chief Complaint: Dental Problems/Pain Stated Complaint: TOOTH PAIN Source: patient History of Present Illness Date Seen by Provider: Apr 15, 2021 Time Seen by Provider: 18:10 Initial Comments PT ARRIVES VIA POV FROM HOME C/O DENTAL PAIN / INFECTION TO RIGHT LOWER MOLAR AREA STATES SHE HAS HAD PROBLEMS WITH THIS TOOTH FOR A LONG TIME--LARGE CAVITY IN TOOTH, AND HAS BEEN TOLD IN THE PAST THAT SHE NEEDED A ROOT CANAL OR TO HAVE TOOTH PULLED PT HAS NOT SEEN A DENTIST IN A COUPLE OF YEARS STATES SHE BEGAN HAVING PAIN IN THIS TOOTH ABOUT A WEEK AGO STATES A "BUBBLE" ON THE GUM CAME UP YESTERDAY AND IT POPPED AND THEN "BUBBLED UP AGAIN" TODAY NO FEVER NO SWELLING TO FACE/JAW. TOOK 1 IBUPROFEN AROUND NOON TODAY HAS NOT ATTEMPTED TO CONTACT A DENTIST AT ANY TIME FOR THIS PROBLEM PCP: ROSALINO-CHRISTIANO, DR. LOMELI Allergies and Home Medications Allergies Coded Allergies: Sulfa (Sulfonamide Antibiotics) (Unverified Allergy, Mild, HIVES, 06/01/18) sulfamethoxazole (Unverified Allergy, Mild, HIVES, 06/01/18) trimethoprim (Unverified Allergy, Mild, HIVES, 06/01/18) Patient Home Medication List Home Medication List Reviewed: Yes Amoxicillin/Potassium Clav (Augmentin 875-125 Tablet) 1 Each Tablet, 1 EACH PO BID Prescribed by: ELLEN SIMPSON on 04/15/211820 Docusate Sodium (Docusate Sodium) 100 Mg Capsule, 100 MG PO BID Prescribed by: EDILSON HUBBARD on 06/04/18 0957 Hydrocodone Bit/Acetaminophen (Lortab 5 Mg Tablet) 1 Tab Tab, 1-2 TAB PO Q4H PRN for PAIN-MODERATE Prescribed by: EDILSON HUBBARD on 06/04/18 0957 Hyoscyamine Sulfate (Levsin-Sl) 0.125 Mg Tab.subl, 1-2 TAB SL Q4H Prescribed by: ELLEN SIMPSON on 03/29/19 1443 Ibuprofen (Ibu) 600 Mg Tablet, 600 MG PO Q6H Prescribed by: EDILSON HUBBARD on 06/04/18 0957 Lidocaine HCl (Lidocaine HCl Viscous) 15 Ml Solution, 1-2 ML MM [id number] Prescribed by: ELLEN SIMPSON on 04/15/211820 Naproxen (Naproxen) 500 Mg Tablet.dr, 500 MG PO BID Prescribed by: ELLEN SIMPSON on 04/15/21 1821 Ondansetron (Ondansetron Odt) 4 Mg Tab.rapdis, 4 MG PO Q4H Prescribed by: ELLEN SIMPSON on 03/29/19 1443 Vit W-Ca,Fe,FA(<1 mg) ( Vitamins) 1 Each Tablet, 1 EACH PO DAILY, (Reported) Entered as Reported by: TRINIDAD GUARDADO on 06/01/18 0814 Review of Systems Review of Systems Constitutional: no symptoms reported Mouth: see HPI Throat: no symptoms reported Respiratory: no symptoms reported Cardiovascular: no symptoms reported Gastrointestinal: no symptoms reported LMP: Mar 27, 2021 Musculoskeletal: no symptoms reported Skin: no symptoms reported Neurological: No Symptoms Reported Past Xczbiyu-Jxehfx-Rfsczc Hx Patient Social History Tobacco Use?: No Substance use?: No Alcohol Use?: No Immunizations Up To Date Tetanus Booster (TDap): Less than 5yrs PED Vaccines UTD: No Seasonal Allergies Seasonal Allergies: No Past Medical History Surgery/Hospitalization HX: LEFT WRIST GANGLION CYST OR BENIGN TUMOR SURGERY X 10 UMBILICAL HERNIA REPAIR Surgeries: Yes Abdominal, Appendectomy, Section, Gallbladder, Orthopedic, Tubal Ligation Respiratory: Yes (HASN'T HAD ISSUES FOR YEARS BUT HAS DURING LAST ) Asthma Cardiac: No Neurological: No Reproductive Disorders: No Female Reproductive Disorders: Denies Sexually Transmitted Disease: No HIV/AIDS: No Genitourinary: No Gastrointestinal: Yes (S/P MERLIN, APPY, UMBILICAL HERNIA REPAIR) Abdominal Hernia, Gastroesophageal Reflux, Gall Bladder Disease Musculoskeletal: Yes (BENIGN TUMOR LEFT HAND--10 SURGERIES) Endocrine: No HEENT: Yes (GLASSES) Loss of Vision: Bilateral Hearing Impairment: Denies Cancer: No Psychosocial: Yes (HX DEPRESSION) Integumentary: Yes (BENIGN TUMOR LEFT HAND--SURGERY X 9) Eczema Blood Disorders: No Adverse Reaction/Blood Tranf: No (N/A) Family Medical History FH: cerebral palsy G8 BROTHER No Pertinent Family Hx Physical Exam Vital Signs Vital Signs - First Documented 04/15/21 18:10 Temp 37.2 Pulse 98 Resp 18 B/P (MAP) 133/82 (99) Pulse Ox 99 O2 Delivery Room Air Height, Weight, BMI Height: 5'2.00" Weight: 187lbs. 8.0oz. 85.381520lq; 32.00 BMI Method:Stated General Appearance: WD/WN, no apparent distress Ears: bilateral ear TM normal Nose: normal inspection Mouth/Throat: pharynx normal, dental tenderness; No excessive drooling, No mandibular swelling; other (RIGHT LOWER FIRST MOLAR WITH EXTENSIVE CARIES, WITH ADJACENT GUM SWELLING AND ERYTHEMA WITH SMALL SUB Q PURULENT AREA TO BUCCAL ASPECT. NO FACIAL OR MANDIBULAR SWELLING) Neck: normal inspection; No lymphadenopathy (R), No lymphadenopathy (L) Cardiovascular: regular rate, rhythm, no murmur Respiratory: normal breath sounds Neurologic/Psychiatric: network technician II-XII nml as tested, no motor/sensory deficits, alert, normal mood/affect, oriented x 3 Skin: normal color, warm/dry Progress/Results/Core Measures Results/Orders My Orders Orders - ELLEN SIMPSON DO Amoxicillin/Clavulanate Tablet (Augmenti (04/15/21 18:30) Lidocaine 2% Viscous 15 Ml (Xylocaine Vi (04/15/21 18:30) Rx-Naproxen (Rx-Naprosyn) (04/15/21 18:30) Medications Given in ED Current Medications Medications Dose Ordered Sig/Placido Route Start Time Stop Time Status Last Admin Dose Admin Lidocaine HCl 5 ml ONCE ONCE MM 04/15/21 18:30 04/15/21 18:32 DC 04/15/21 18:45 5 ML Naproxen 250 mg ONCE ONCE PO 04/15/21 18:30 04/15/21 18:32 DC 04/15/21 18:45 250 MG Vital Signs/I&O 04/15/21 18:10 Temp 37.2 Pulse 98 Resp 18 B/P (MAP) 133/82 (99) Pulse Ox 99 O2 Delivery Room Air Departure Impression Primary Impression: Dental caries Additional Impression: Dental abscess Disposition: 01 HOME, SELF-CARE Condition: Stable Departure-Patient Inst. Decision time for Depature: 18:17 Referrals: BLESSING LOMELI MD (PCP/Family) Primary Care Physician Patient Instructions: Tooth Abscess ED, Tooth Decay ED Add. Discharge Instructions: FOLLOW UP WITH DENTIST THIS WEEK FOR FURTHER CARE--CALL IN THE MORNING TO SCHEDULE APPOINTMENT All discharge instructions reviewed with patient and/or family. Voiced understanding. Scripts Naproxen (Naproxen) 500 Mg Tablet. 500 MG PO BID, #20 TAB Prov: ELLEN SIMPSON DO 04/15/21 Lidocaine HCl (Lidocaine HCl Viscous) 15 Ml Solution 1-2 ML MM [id number], #120 ML Prov: ELLEN SIMPSON DO 04/15/21 Amoxicillin/Potassium Clav (Augmentin 875-125 Tablet) 1 Each Tablet 1 EACH PO BID for 10 Days, #20 TAB Prov: ELLEN SIMPSON DO 04/15/21 ELLEN SIMPSON DO Apr 15, 2021 18:21
[2021-04-15] MEDS ORDERED: RX-NAPROXEN (NAPROSYN) 250 MG TAB PPK#4 PO ONE (18:30)
[2021-04-15] MEDS ORDERED: LIDOCAINE 2% VISCOUS 15 ML UDC MM ONE (18:30)
[2021-04-15] MEDS ORDERED: AUGMENTIN 875 MG TAB (AMOXICILLIN/CLAVULANATE) PO SCH (18:30)
[2021-04-15 19:13] VITALS: BP 123/82
== END 2021-04-15 19:13 | disposition home or self-care (01) ==
LOC: EDUNIT# 17:55 → ER 17:56
DX: K04.7 Periapical abscess without sinus (principal); K02.9 Dental caries, unspecified; K21.9 Gastro-esophageal reflux disease without esophagitis; J45.909 Unspecified asthma, uncomplicated; Z88.1 Allergy status to other antibiotic agents; Z88.2 Allergy status to sulfonamides
CPT/HCPCS: 99283